=== PATIENT | male | born 1940 | race African-American/Black ===

== ENCOUNTER 2016-10-18 21:41 | Inpatient (IN) | payer MEDICARE, OTHER ==
[~2016-10-18] VITALS: Ht 170.2 cm; Wt 68.6 kg
[~2016-10-18 21:41] MED LIST: ACET-2158 GTB; ATOR80TA75 PO; BIMA2.5D RIGHT EYE; BRIM10DR2 OP; DIGO125T6 PO; ENOX30DI10 SQ; FLOMAX; FOLI-49 PO; METO-429; METOPROLOL ER; PANT40TA4 PO; PENT400T24 PO; TOLT2TAB13 PO; WARF3TAB PO
[2016-10-18 22:26] LABS: ADD SCAN DIFF NO
[2016-10-18 22:28] LABS: BASOPHILS % 0.4 % (0.0-2.0); EOSINOPHILS % 0.4 % (0.0-7.0); HEMATOCRIT 39.2 % (42.0-52.0); HEMOGLOBIN 12.6 g/dl (14.0-18.0); LYMPHOCYTES % 9.7 % (15.0-51.0); MEAN CORPUSCULAR HEMOGLOBIN 28.8 pg (29.0-33.0); MEAN CORPUSCULAR HGB CONC 32.1 g/dl (32.0-37.0); MEAN CORPUSCULAR VOLUME 89.7 fl (82.0-101.0); MEAN PLATELET VOLUME 9.9 fl (7.4-10.4); MONOCYTE # 0.9 10^3/ul (0.3-0.9); MONOCYTES % 8.5 % (0.0-11.0); NEUTROPHIL # 8.6 10^3/ul (1.6-7.5); NEUTROPHILS % 80.7 % (39.0-77.0); PLATELET COUNT 256 10^3/UL (140-415); RED BLOOD COUNT 4.37 10^6/ul (4.70-6.10); RED CELL DISTRIBUTION WIDTH 15.2 % (11.5-14.5); WHITE BLOOD COUNT 10.7 10^3/ul (4.8-10.8)
[2016-10-18 22:43] LABS: INR 2.59; PROTIME 28.1 Sec (12.2-14.2); PT RATIO 2.2
[2016-10-18 22:44] LABS: PARTIAL THROMBOPLASTIN TIME 36.9 Sec (25.0-35.0)
[2016-10-18 22:57] LABS: ADD UMIC YES; UR BILIRUBIN (Dip) NEGATIVE (NEGATIVE); UR BLOOD (Dip) 3+ (NEGATIVE); UR CLARITY CLOUDY (CLEAR); UR COLOR LT. YELLOW (YELLOW); UR GLUCOSE (Dip) NEGATIVE (NEGATIVE); UR KETONES (Dip) NEGATIVE (NEGATIVE); UR LEUKOCYTE ESTERASE (Dip) 2+ (NEGATIVE); UR NITRITE (Dip) NEGATIVE (NEGATIVE); UR TOTAL PROTEIN (Dip) 2+ (NEGATIVE); UR UROBILINOGEN (Dip) 0.2 E.U./dL (0.1-1.0)
[2016-10-18 23:01] LABS: URINE RBCS >200 /HPF (0)
[2016-10-18 23:02] LABS: UR BACTERIA MANY
--- NOTE | 2016-10-18 23:03 | RADRPT ---
PROCEDURE: CHEST 1VW CLINICAL INDICATION: Abdominal pain TECHNIQUE: Single frontal view of the chest was obtained COMPARISON: None. FINDINGS: Sternotomy wires are present along with a prosthetic heart valve. The cardiac size is normal. Aortic vascular calcifications are demonstrated. There is no pulmonary vascular congestion. The lungs are clear. No consolidation, effusion, or pneumothorax. Mild degenerative changes of the visualized osseous structures are visualized. IMPRESSION: 1. No acute cardiopulmonary process. 2. Atherosclerosis status post heart valve repair. RPTAT:PP .Ramón Prado MD, MD Date Time Electronically viewed and signed by .Ramón Prado MD, MD on 10/18/2016 23:03 .V/
--- NOTE | 2016-10-18 23:31 | RADRPT ---
PROCEDURE: CT Abdomen and Pelvis without contrast. CLINICAL INDICATION: Abdominal pain TECHNIQUE: CT scan of the abdomen and pelvis without contrast was performed on a multidetector hig h-resolution CT scanner. The patient was scanned without intravenous contrast. Coronal and sagittal reformatted images were obtained from the axial source images. Images were reviewed on a high-resol [employer] PACS workstation. The total exam CTDI equals 13.02 mGy and the total exam DLP equals 707.87 mG y-cm. One or more the following dose reduction techniques were utilized: Automated exposure control, adjus tment of the mA/ or kV according to patient's size, or use of iterative reconstruction technique. COMPARISON: None. FINDINGS: Sternal wires. Prosthetic mitral valve. Emphysema at lung bases. Linear atelectasis/fibrosis at l hali bases. Small calcified granulomas at the right lung base. Nonspecific approximate 4 mm nodular density at base of left lower lung lobe posteriorly and inferiorly. Calcified granuloma in central liver. Calcified granulomas in spleen. Moderate hiatal hernia. The pancreas as visualized is karena l. Cholelithiasis. There is no evidence for biliary dilatation. The adrenal glands are symmetric a nd normal. Mild to moderate right hydronephrosis. Nonobstructing calculi in right kidney the larges t 7 mm. There is 1.5 cm oval fluid density structure likely a cyst in the mid right kidney. There i s right perinephric and periureteral soft tissue stranding and mild proximal periureteral fluid. Th ere are multiple adjacent small calculi in the distal right ureter the largest approximately 1-2 mm. There are multiple calculi in the right posterior bladder the largest approximately 7 mm which could represent recently passed right ureteral calculi. There is appearance of wall thickening of th e posterior bladder. Mild nonspecific left perinephric soft tissue stranding is seen. There is mild decreased length of the left kidney measuring approximately 8.7 cm. The aorta is of normal caliber. Aortic vascular calcifications are present. Stent in the proximal l eft renal artery. Calcification in splenic, hepatic, right renal and bilateral iliac and femoral ar teries. There is no retroperitoneal lymphadenopathy. Calcified lymph nodes in the periportal region . Calcified lymph node in the upper extrahepatic ligament region. Very small umbilical hernia contai dori fat only. The small bowel loops situated within the pelvis are unremarkable. The prostate does not appear to b e significantly enlarged. Large right inguinal hernia containing fat and nondilated small bowel with no evidence of incarceration. The sigmoid colon and rectum are unremarkable. No adenopathy or ellyn e fluid is seen. There is an unremarkable appendix. Intramedullary elias in right femur with nail in the intertrochanteric right femur. Mild osteoarthrosi s at hips. Mild degenerative changes at sacroiliac joints. Thoracolumbar spondylosis. IMPRESSION: Mild to moderate right hydronephrosis. Nonobstructing calculi in right kidney the largest 7 mm. Th ere is right perinephric and periureteral soft tissue stranding and mild proximal periureteral fluid . There are multiple adjacent small calculi in the distal right ureter the largest approximately 1- 2 mm. There is soft tissue stranding in fat adjacent to the distal ureter. There are multiple calcul i in the right posterior bladder the largest approximately 7 mm which could represent recently passe d right ureteral calculi. Wall thickening of the posterior bladder of uncertain etiology. Large righ t inguinal hernia containing fat and nondilated small bowel with no evidence of incarceration. [place] lithiasis. Atherosclerosis. Nonspecific approximate 4 mm nodular density at base of left lower lung lobe posteriorly and inferiorly. Please see above. RPTAT: HJES .Marcelo Vasquez MD, MD Date Time Electronically viewed and signed by .Marcelo Vasquez MD, on 10/18/2016 23:30 .S/
[2016-10-18 23:52] LABS: ALBUMIN 4.4 g/dl (3.3-4.9); ALBUMIN/GLOBULIN RATIO 1.29; BILIRUBIN,INDIRECT 0.7 mg/dl (0-1.1); BILIRUBIN,TOTAL 0.7 mg/dl (0.2-1.3); CALCIUM 10.2 mg/dl (8.4-10.2); CREATININE 1.42 mg/dl (0.61-1.24); POTASSIUM 4.6 mmol/L (3.5-5.1); TOTAL PROTEIN 7.8 g/dl (6.1-8.1)
[2016-10-19] MEDS ORDERED: CEFTRIAXONE 1 GM/50 ML (PMX) 50 ML IVPB ONE (00:30)
[2016-10-19] MEDS ORDERED: MULT-876 PO (01:50)
[2016-10-19] MEDS ORDERED: UDMYL PO (01:59)
[2016-10-19] MEDS ORDERED: RANI150T9 PO (01:59)
[2016-10-19] MEDS ORDERED: LATA2.5D9 BOTH EYES (01:59)
[2016-10-19] MEDS ORDERED: TRAM50TA2 PO (01:59)
[2016-10-19] MEDS ORDERED: MAGN400T27 PO (01:59)
[2016-10-19] MEDS ORDERED: ASPI-664 PO (01:59)
[2016-10-19] MEDS ORDERED: CILO50TA PO (02:04)
--- NOTE | 2016-10-19 03:02 | ERA ---
ER Documentation Chief Complaint Date/Time DATE: 10/19/16 TIME: 03:01 Chief Complaint right hip/waist/abominal pain-no trauma, starting today HPI This is a 76-year-old male comes in the right hip with abdominal pain started today. Pain is mild to moderate intensity. She denies any trauma. No fevers no chills. No other current complaints. Patient has history of genitourinary issues ROS All systems reviewed and are negative except as per history of present illness. Medications Home Meds Reported Medications Cilostazol* (Cilostazol*) 50 Mg Tablet, 50 MG PO AC BREAKFAST DINNER for PVD, TAB 10/19/16 Latanoprost (Xalatan) 2.5 Ml Drops, 1 DROP BOTH EYES QHS for GLAUCOMA, #1 BOTTLE 10/19/16 Magaldrate/Simethicone* (Mag-Al Plus Suspension*) 30 Ml Oral.susp, 30 ML PO Q6H Y for GASTROINTESTINAL UPSET, ML 10/19/16 Magnesium Oxide* (Mag-Oxide*) 400 Mg Tablet, 400 MG PO TID, TAB 10/19/16 Tramadol HCl (Tramadol HCl) 50 Mg Tablet, 50 MG PO TID for PAIN, #90 TAB 10/19/16 Ranitidine Hcl* (Zantac*) 150 Mg Tablet, 150 MG PO BID, #60 TAB 10/19/16 Aspirin* (Aspirin* EC) 81 Mg Tablet.dr, 81 MG PO DAILY, TAB 10/19/16 Multivit-Min/Iron Fum/Folic AC (Tyjyx-Gyocjfp-Tbzfkubg Tablet) 1 Each Tablet, 1 EACH PO, TAB 10/19/16 Warfarin Sodium* (Coumadin*) 3 Mg Tablet, 3.5 MG PO PM 08/20/13 Atorvastatin* (Atorvastatin*) 80 Mg Tablet, 80 MG PO HS 08/20/13 Pentoxifylline* (Trental*) 400 Mg Tablet.sa, 400 MG PO TID 08/20/13 Tolterodine Tartrate* (Detrol*) 2 Mg Tablet, 4 MG PO DAILY 08/20/13 Folic Acid* (Folic Acid*) 1 Mg Tablet, 1 MG PO DAILY 08/20/13 Metoprolol Tartrate (LOPRESSOR) 50 Mg Tab, 5 Y for ELEVATED HEART RATE, TAB 08/20/13 Digoxin* (Lanoxin*) 125 Mcg Tablet, 125 MCG PO DAILY 08/20/13 Pantoprazole (Protonix) 40 Mg Tabec, 40 MG PO AC MEALS 08/20/13 Discontinued Reported Medications Enoxaparin Sodium* (Lovenox*) 30 Mg/0.3 Ml Disp.syrin, 40 MG SQ DAILY 08/20/13 [Metoprolol Er] No Conflict Check, 100 MG BID 08/20/13 Acetaminophen (TYLENOL 325 MG TAB) 325 Mg Tab, 650 MG GTB Y for PAIN, TAB 08/20/13 [Flomax] No Conflict Check, 0.4 HS 08/20/13 Bimatoprost* (Lumigan*) 2.5 Ml Drops, 1 DROP RIGHT EYE HS 08/20/13 Brimonidine/Timolol* (Combigan*) 10 Ml Drops, 10 ML OP BID 08/20/13 Allergies Allergies: Coded Allergies: No Known Allergy (Unverified , 10/18/16) PMhx/Soc History of Surgery: Yes (MITRAL VALVE REPLACEMENT) Anesthesia Reaction: No Hx Neurological Disorder: No Hx Respiratory Disorders: Yes (COPD) Hx Cardiac Disorders: Yes (PVD,CAROTID DIS. CAD, HTN, RHD,DYSLIPEDEMIA) Hx Psychiatric Problems: No Hx Miscellaneous Medical Probl: Yes (LOWER LIMB ISCHEMIC; bph; R BKA) Hx Alcohol Use: No Hx Substance Use: No Hx Tobacco Use: No Smoking Status: Never smoker Physical Exam Vitals Vital Signs Date Time Temp Pulse Resp B/P Pulse Ox O2 Delivery O2 Flow Rate FiO2 10/19/16 01:30 98 18 154/88 97 Room Air 10/18/16 21:55 97.5 120 18 153/77 94 Physical Exam Const: [] Head: Atraumatic Eyes: Normal Conjunctiva ENT: Normal External Ears, Nose and Mouth. Neck: Full range of motion..~ No meningismus. Resp: Clear to auscultation bilaterally Cardio: Regular rate and rhythm, no murmurs Abd: Soft, non tender, non distended. Normal bowel sounds Skin: No petechiae or rashes Back: No midline or flank tenderness Ext: No cyanosis, or edema Neur: Awake and alert Psych: Normal Mood and Affect Result Diagram: 10/18/16 2215 10/18/162214 Results 24 hrs Laboratory Tests Test 10/18/16 22:15 10/18/16 22:40 White Blood Count 10.710^3/ul Red Blood Count 4.3710^6/ul Hemoglobin 12.6g/dl Hematocrit 39.2% Mean Corpuscular Volume 89.7fl Mean Corpuscular Hemoglobin 28.8pg Mean Corpuscular Hemoglobin Concent 32.1g/dl Red Cell Distribution Width 15.2% Platelet Count 34365^3/UL Mean Platelet Volume 9.9fl Neutrophils % 80.7% Lymphocytes % 9.7% Monocytes % 8.5% Eosinophils % 0.4% Basophils % 0.4% Nucleated Red Blood Cells % 0.0/100WBC Neutrophils # 8.610^3/ul Lymphocytes # 1.010^3/ul Monocytes # 0.910^3/ul Eosinophils # 0.010^3/ul Basophils # 0.010^3/ul Nucleated Red Blood Cells # 0.010^3/ul Prothrombin Time 28.1Sec Prothrombin Time Ratio 2.2 INR International Normalized Ratio 2.59 Activated Partial Thromboplast Time 36.9Sec Sodium Level 147mmol/L Potassium Level 4.6mmol/L Chloride Level 108mmol/L Carbon Dioxide Level 28mmol/L Anion Gap 16 Blood Urea Nitrogen 21mg/dl Creatinine 1.42mg/dl Glucose Level 113mg/dl Calcium Level 10.2mg/dl Total Bilirubin 0.7mg/dl Direct Bilirubin 0.00mg/dl Indirect Bilirubin 0.7mg/dl Aspartate Amino Transf (AST/SGOT) 34IU/L Alanine Aminotransferase (ALT/SGPT) 34IU/L Alkaline Phosphatase 115IU/L Total Protein 7.8g/dl Albumin 4.4g/dl Globulin 3.40g/dl Albumin/Globulin Ratio 1.29 Lipase 59U/L Urine Color LT. YELLOW Urine Clarity CLOUDY Urine pH 8.5 Urine Specific [place] 1.020 Urine Ketones NEGATIVE Urine Nitrite NEGATIVE Urine Bilirubin NEGATIVE Urine Urobilinogen 0.2 E.U./dL Urine Leukocyte Esterase 2+ Urine Microscopic RBC >200/HPF Urine Microscopic WBC >50/HPF Urine Epithelial Cells FEW Urine Bacteria MANY Urine Hemoglobin 3+ Urine Glucose NEGATIVE% Urine Total Protein 2+ Current Medications Medications (Trade) Dose Ordered Sig/Anna Route PRN Reason Start Time Stop Time Status Last Admin Dose Admin Ceftriaxone Sodium (Rocephin) 50 ml @ 100 mls/hr ONCE ONCE IVPB 10/19/16 00:30 10/19/16 00:59 DC 10/19/16 00:34 Procedures/MDM EKG: Rate/Rhythm: Normal Sinus Rhythm QRS, ST, T-waves: No changes consistent w/ acute ischemia Impression: No evidence of ischemia or arrhythmia Chest X-ray 1V Interpreted by me: Soft Tissue: No acute abnormalities Bones: No acute abnormalities Mediastinum/Cardiac Silhouette/Lungs: No acute abnormalities Medical decision-makin-year-old male has evidence of pyelonephritis but also has renal stones. Given this complicated case, patient was started on broad-spectrum antibiotics and will be admitted Dr. Rafi Noble. Physician consult was placed with Dr. Alicia, who follows this patient already. Departure Diagnosis: Primary Impression: Pyelonephritis Additional Impression: Renal colic Condition: Serious CIARRA DE LA FUENTE Oct 19, 2016 03:02
[2016-10-19 03:45] VITALS: BP 124/70; RESP 18
[2016-10-19 03:55] VITALS: Ht 170.2 cm; Wt 68.6 kg
[2016-10-19] MEDS ORDERED: morphine 2 MG INJ IV PRN (05:00)
[2016-10-19] MEDS ORDERED: AL HYDROX/MG HYDROX/SIMETH 30 ML CUP PO PRN (05:00)
[2016-10-19] MEDS ORDERED: ONDANSETRON 4 MG INJ IV PRN (05:00)
[2016-10-19 05:53] LABS: ADD SCAN DIFF NO
[2016-10-19 05:56] LABS: BASOPHILS % 0.3 % (0.0-2.0); EOSINOPHILS # 0.1 10^3/ul (0.0-0.5); EOSINOPHILS % 0.8 % (0.0-7.0); HEMATOCRIT 39.2 % (42.0-52.0); HEMOGLOBIN 12.8 g/dl (14.0-18.0); LYMPHOCYTES # 1.4 10^3/ul (0.8-2.9); LYMPHOCYTES % 13.8 % (15.0-51.0); MEAN CORPUSCULAR HEMOGLOBIN 29.3 pg (29.0-33.0); MEAN CORPUSCULAR HGB CONC 32.7 g/dl (32.0-37.0); MEAN CORPUSCULAR VOLUME 89.7 fl (82.0-101.0); MONOCYTE # 0.8 10^3/ul (0.3-0.9); MONOCYTES % 8.4 % (0.0-11.0); NEUTROPHIL # 7.5 10^3/ul (1.6-7.5); NEUTROPHILS % 76.4 % (39.0-77.0); PLATELET COUNT 265 10^3/UL (140-415); RED BLOOD COUNT 4.37 10^6/ul (4.70-6.10); RED CELL DISTRIBUTION WIDTH 15.2 % (11.5-14.5); WHITE BLOOD COUNT 9.9 10^3/ul (4.8-10.8)
[2016-10-19] MEDS ORDERED: CILOSTAZOL 100 MG TAB PO SCH ×3 (06:00→08:00)
[2016-10-19 06:13] LABS: INR 2.79; PROTIME 29.8 Sec (12.2-14.2); PT RATIO 2.3
[2016-10-19] MEDS: DEXTROSE 5%-0.45% NACL 1,000 ML IV SCH ×3 (06:26→20:55)
[2016-10-19] MEDS: PIPER-TAZO 3.375 GM IV (PMX) 100 ML IVPB SCH ×3 (06:26→21:53)
[2016-10-19 06:43] LABS: ALBUMIN 4.3 g/dl (3.3-4.9); ALBUMIN/GLOBULIN RATIO 1.43; BILIRUBIN,INDIRECT 0.6 mg/dl (0-1.1); BILIRUBIN,TOTAL 0.6 mg/dl (0.2-1.3); CALCIUM 9.9 mg/dl (8.4-10.2); CREATININE 1.26 mg/dl (0.61-1.24); POTASSIUM 4.3 mmol/L (3.5-5.1); TOTAL PROTEIN 7.3 g/dl (6.1-8.1)
[2016-10-19] MEDS: PANTOPRAZOLE (EC) 40 MG TAB PO SCH (08:00)
[2016-10-19] MEDS: CILOSTAZOL 100 MG TAB PO SCH ×2 (08:00→17:58)
[2016-10-19] MEDS ORDERED: PANTOPRAZOLE (EC) 40 MG TAB PO SCH (08:00)
[2016-10-19 08:36] VITALS: BP 123/69; RESP 16
[2016-10-19] MEDS: TOLTERODINE 2 MG TAB PO SCH (09:42)
[2016-10-19] MEDS: ASPIRIN (EC) 81 MG TAB PO SCH (09:43)
[2016-10-19] MEDS: RANITIDINE 150 MG TAB PO SCH ×2 (09:43→20:54)
[2016-10-19] MEDS: MULTIVITAMINS/MINERALS TAB PO SCH (09:43)
[2016-10-19] MEDS: FOLIC ACID 1 MG TAB PO SCH (09:43)
[2016-10-19] MEDS: MAGNESIUM OXIDE 400 MG TAB PO SCH ×3 (09:43→20:54)
[2016-10-19] MEDS: PENTOXIFYLLINE (SR) 400 MG TAB PO SCH ×3 (09:44→20:54)
[2016-10-19] MEDS: traMADol 50 MG TAB PO SCH ×3 (09:44→20:54)
[2016-10-19] MEDS: METOPROLOL 50 MG TAB PO SCH (09:49)
[2016-10-19] MEDS: DIGOXIN 0.125 MG TAB PO SCH (13:30)
--- NOTE | 2016-10-19 14:09 | CONS ---
DATE OF ADMISSION: 10/19/2016 DATE OF CONSULTATION: 10/19/2016 REQUESTING PHYSICIAN: Dr. Kashmir Noble Dear Kashmir, Thank you for asking me to see this patient in urological consultation. HISTORY OF PRESENT ILLNESS: This is a 76-year-old male who I know from the past 10 years, and I see him in the office once every 6 months. The patient sees me because of prostate ca ncer that is being managed with surveillance. The patient [facility] in the [facility] he was brought to [facility] because of right lower abdominal pain. He did have nausea but no vomiting. The patient underwent a CT scan of the abdomen and pelvis, and that showed multiple right renal stones in addition to stones in the distal right ureter and having right hydro nephrosis because of probably the stones in the ureter. The patient, at present, stated that he is feeling uncomfortable. PAST MEDICAL HISTORY: Significant for history of heart surgery for mitral valve replacement, histor y of COPD, history of peripheral vascular disease, coronary artery disease, hypertension, and dyslip idemia. The patient has had right below knee amputation. The patient's left leg right now also has poor circulation. SOCIAL HISTORY: The patient does not smoke, does not drink, and [facility] [place]. ALLERGIES: HE HAS NO KNOWN DRUG ALLERGIES. PRESENT MEDICATIONS: Include 1. Eyedrops for glaucoma. 2. Flomax. 3. Tylenol p.r.n. 4. Metoprolol 100 mg twice a day. 5. Lovenox. 6. Protonix. 7. Lanoxin. 8. Lopressor. 9. Folic acid. 10. Detrol 2 mg. Initially the patient does complain of urinary frequency. 11. Pentoxifylline 400 mg 3 times a day. 12. Atorvastatin 80 mg daily. 13. Coumadin 3 mg. 14. Folic acid. 15. Aspirin 81 mg. 16. Zantac 150 mg. 17. Tramadol for the pain. 18. Magnesium oxide. 19. Magaldrate simethicone suspension. 20. Xalatan eyedrops. 21. ____ 50 mg tabs. PHYSICAL EXAMINATION: GENERAL: Reveals an elderly male. He weighs about 68.6 kilograms. He is 67 inches tall. VITAL SIGNS: Temperature is 98.0, pulse is 95, respirations 16, blood pressure 123/69. ABDOMEN: Soft at the present. He denies having any tenderness. EXTERNAL GENITALIA: He does have a right inguinal hernia. Both testes are atrophic. RECTAL: Reveals a hard prostate but is not large. LABORATORY DATA: CBC shows a white count of 9.9, hemoglobin 12.8, hematocrit 39.2, platelet count 2 65,000. BUN is 20, creatinine 1.26. Sodium 146, potassium 4.3, chloride 110, CO2 28. PT is 29.8, INR 2.79. Urinalysis shows 3+ occult blood, more than 200 RBCs, more than 50 WBCs. IMPRESSION: The patient does have right renal stones and mild to moderate right hydronephrosis with kidney stones, the largest being 7 mm in size. There is also right perinephric and periureteral so ft tissue stranding. There are multiple small stones in the distal right ureter, the largest being 1 to 2 mm. There is some stranding next to the distal right ureter. There are multiple calculi in the right posterior bladder, the largest 7 mm, which could represent a recently passed right uretera l calculi, or it could be a stone at the ureterovesical junction. There is wall thickening of the p osterior bladder of uncertain etiology. He does have a right inguinal hernia containing fat and non dilated small bowel with no evidence of incarceration. He does have cholelithiasis, atherosclerosis , and nonspecific approximate 4 mm nodular density at the base of the left lower lung lobe posterior ly and inferiorly. PLAN: Strain his urine, give him pain medications. We will get a KUB to see if one could see the s tone on the KUB, and we also shall send urine for culture to make sure that there is no urinary trac t infection. I will follow his urological problem with you. I do thank you for allowing me to help in his care. Dictated By: GAETANO ROMAN/ROMEL Conf#: [id number] DID#: [id number]
--- NOTE | 2016-10-19 16:15 | QN ---
Documentation Comment [id number] ALEKSEY GARCIA MD Oct 19, 2016 16:15
[2016-10-19] MEDS ORDERED: WARFARIN 1 MG TAB PO SCH (17:00)
[2016-10-19] MEDS ORDERED: WARFARIN 3 MG TAB PO SCH (17:00)
--- NOTE | 2016-10-19 17:52 | HP ---
DATE OF ADMISSION: 10/19/2016 HISTORY OF PRESENT ILLNESS: The patient is a 76-year-old male who is a resident of [facility] and was transferred here because of the severe flank pain. The patient has a history of PVD, CAD, AFib history, history of mitral valve replacement, history of right BKA, history of gastritis, peptic ulcer disease per patient, history of anemia, history of hypertension, history of hyperlipidemia, history of rheumatic heart disease, history of prostate cancer being monitored by Dr. Martins, presented with flank pain and noted to have blood pressure 123/69. The patient had a chest x-ray done, shows the patient has no acute cardiopulmonary process, atherosclerosis, status post heart valve repair. The patient had a CT of the abdomen done shows patient has a mild to moderate right hydronephrosis, nonobstructing calculi in the right kidney, the largest 7 mm. There is right perinephric and periureteral soft tissue stranding and mild proximal periureteral fluid. There are multiple adjacent small calculi in the distal right ureter, the largest approximately 1 to 2 mm. There is soft tissue stranding in that adjacent to the distal ureter. There are multiple calculi in the right posterior bladder, the largest approximately 7 mm which could represent right ureteral calculi. Wall thickening of the posterior bladder of uncertain etiology. Large right inguinal hernia containing fat, and nondilated small bowel with no evidence of incarceration, cholelithiasis, atherosclerosis. Nonspecific approximately 4 mm nodular density at the base of the left lower lobe posteriorly and inferiorly. The patient's sodium 147 earlier, now is 146, and is being admitted for further management. PAST MEDICAL HISTORY: As mentioned above. 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 Cedeno as an outpatient. The patient has ejection fraction 60% to 65% in the past and moderate 2+ aortic insufficiency, moderate 2 to 3+ tricuspid regurgitation. The patient has a history of moderate aortic stenosis, prosthetic mitral valve functioning well, left ventricular hypertrophy with normal ejection fraction. ALLERGY HISTORY: NEGATIVE. SOCIAL HISTORY: Negative. FAMILY HISTORY: Positive for rheumatic heart disease per patient. MEDICATION HISTORY: Listed as patient is on: 1. Aspirin. 2. Lipitor. 3. Pletal. 4. Digoxin. 5. Folic acid. 6. Xalatan. 7. Megace. 8. Magnesium oxide. 9. Metoprolol. 10. Multivitamin. 11. Protonix. 12. Trental. 13. Ranitidine. 14. Detrol. 15. Tramadol. 16. Warfarin. REVIEW OF SYSTEMS: As mentioned. RESPIRATORY: Unremarkable. CARDIOVASCULAR: Unremarkable. ABDOMEN: No abdominal pain and no dysuria, hematuria. Flank tenderness. EXTREMITIES: Unremarkable. CENTRAL NERVOUS SYSTEM: Unremarkable. PHYSICAL EXAMINATION: GENERAL: The patient is awake, alert. VITAL SIGNS: Pulse 95, blood pressure 124/70. HEENT: Head is atraumatic, normocephalic. Pupils equal, reactive to light. NECK: Supple. No JVD. LUNGS: Clear. CARDIOVASCULAR: S1, S2 are normal. Systolic murmur noted. ABDOMEN: Soft, nontender. Bowel sounds present. No palpable mass. EXTREMITIES: The patient has no acute cyanosis, clubbing, or edema. The patient has a right BKA. LABORATORY DATA: As mentioned above. IMPRESSION: 1. The patient has acute renal colic, ureteral stone, kidney stone and bladder stone. 2. The patient has systemic inflammatory response syndrome. 3. Dehydration. 4. Hypernatremia. 5. History of chronic atrial fibrillation. 6. History of rheumatic heart disease. 7. History of mitral valve replacement, mechanical, per patient. 8. History of dyslipidemia. 9. History of hypertension. 10. History of peripheral vascular disease. 11. History of prostate cancer being monitored by Dr. Martins. PLAN: To continue current treatment. The patient is currently on antibiotics. Continue home medications, Coumadin. Urology consultation. Orders were done. Dictated By: ALEKSEY GARCIA MD BS/ROMEL Conf#: [id number] DID#: [id number] MTDD
[2016-10-19 19:56] VITALS: BP 146/73; RESP 20
[2016-10-19] MEDS: ATORVASTATIN 80 MG TAB PO SCH (20:54)
[2016-10-19] MEDS: LATANOPROST 0.005% 2.5 ML OPH BOTH EYES SCH (20:59)
--- NOTE | 2016-10-19 21:53 | RADRPT ---
PROCEDURE: XR Abdomen. CLINICAL INDICATION: Distal rt ureteral stones,rt renal stones TECHNIQUE: AP abdomen x-ray. COMPARISON: CT of the abdomen pelvis 10/18/2016 FINDINGS: The bowel gas pattern is normal. There is no evidence of obstruction. Redemonstration of multiple ca lcifications overlying the right renal shadow compatible with known nonobstructing nephrolithiasis. The distal right ureteral bladder calcifications noted on CT and demonstrated no significant interv al change in position. Right hip nail in place. IMPRESSION: 1. Multiple calcifications overlying the right kidney compatible with known nonobstructing nephroli thiasis. 2. Stable position of multiple distal ureteral and bladder calcifications compared to the CT of 04/2017. RPTAT:AAJJ Physician Akira Date Time Electronically viewed and signed by Physician Akira on 10/19/2016 21:52 ANDRIA/
[2016-10-20] MEDS: PIPER-TAZO 3.375 GM IV (PMX) 100 ML IVPB SCH ×3 (05:37→21:13)
[2016-10-20 06:12] LABS: INR 3.38; PROTIME 34.7 Sec (12.2-14.2); PT RATIO 2.7
[2016-10-20 07:58] VITALS: BP 139/67; RESP 21
[2016-10-20] MEDS: MULTIVITAMINS/MINERALS TAB PO SCH (08:49)
[2016-10-20] MEDS: MAGNESIUM OXIDE 400 MG TAB PO SCH ×3 (08:49→21:13)
[2016-10-20] MEDS: RANITIDINE 150 MG TAB PO SCH ×2 (08:49→21:12)
[2016-10-20] MEDS: CILOSTAZOL 100 MG TAB PO SCH ×2 (08:49→17:20)
[2016-10-20] MEDS: PANTOPRAZOLE (EC) 40 MG TAB PO SCH (08:49)
[2016-10-20] MEDS: ASPIRIN (EC) 81 MG TAB PO SCH (08:49)
[2016-10-20] MEDS: traMADol 50 MG TAB PO SCH ×3 (08:50→21:13)
[2016-10-20] MEDS: METOPROLOL 50 MG TAB PO SCH (08:50)
[2016-10-20] MEDS: FOLIC ACID 1 MG TAB PO SCH (08:50)
[2016-10-20] MEDS: PENTOXIFYLLINE (SR) 400 MG TAB PO SCH ×3 (08:50→21:13)
[2016-10-20] MEDS: TOLTERODINE 2 MG TAB PO SCH (08:50)
--- NOTE | 2016-10-20 12:17 | PN ---
DATE: 10/20/2016 SUBJECTIVE: No abdominal pain mostly on the right lower abdomen. The patient was found to have a d istal right ureteral stones and also right renal stones with some hydronephrosis. HISTORY OF PRESENT ILLNESS: The patient is known also to have a history of prostate cancer with óscar t being monitored and followed without any treatment. The patient himself today feels that he has m ild pain, but it is not that severe as when he came into the hospital. OBJECTIVE: VITAL SIGNS: Temperature is 98.5, blood pressure 139/67, pulse is 115, respirations 21. ABDOMEN: Soft. There is no tenderness at the present, and the external genitalia are normal. LABORATORY DATA: His last CBC from yesterday shows a white count 9.9, hemoglobin 12.8. BUN is 20, creatinine 1.26, sodium 146, potassium 4.3, chloride 110, CO2 28. Urine culture initially that showed gram-positive cocci; however, [facility], no growth after 24 hours. IMAGING: I ordered on him a KUB yesterday and that was reported by the radiologist as multiple calc ifications overlying the right kidney, compatible with nonobstructing stone in the kidney, also stab le position of multiple distal ureteral and bladder calcification compared to the CT scan of 017. IMPRESSION: Distal right ureteral stones. These stones may be at the ureterovesical junction. The y may not be all the way inside the bladder. Recommendation is to continue giving him pain medicati on as needed, strain the urine and we will repeat the KUB and see if the stones do change position. Also, the patient has been on pain medications and also warfarin. His PT is 34.7, the INR 3.38 and that will be checked by the medical team. I will also put him on Flomax just to help relax the dis janie right ureter, to help him pass these stones. Dictated By: GAEATNO ROMAN/ROMEL Conf#: [id number] DID#: [id number]
[2016-10-20] MEDS: DIGOXIN 0.125 MG TAB PO SCH (13:10)
[2016-10-20] MEDS: DEXTROSE 5%-0.45% NACL 1,000 ML IV SCH (15:54)
[2016-10-20] MEDS ORDERED: WARFARIN 3 MG TAB PO SCH (17:00)
[2016-10-20 21:06] VITALS: BP 179/86; RESP 19
[2016-10-20] MEDS: TAMSULOSIN (SR) 0.4 MG CAP PO SCH (21:13)
[2016-10-20] MEDS: ATORVASTATIN 80 MG TAB PO SCH (21:13)
[2016-10-20] MEDS: LATANOPROST 0.005% 2.5 ML OPH BOTH EYES SCH (21:13)
[2016-10-20 21:45] VITALS: BP 142/82
[2016-10-21] MEDS: PIPER-TAZO 3.375 GM IV (PMX) 100 ML IVPB SCH ×3 (05:38→22:59)
[2016-10-21] MEDS: DEXTROSE 5%-0.45% NACL 1,000 ML IV SCH ×2 (05:38→22:59)
[2016-10-21 06:12] LABS: INR 4.22; PROTIME 41.4 Sec (12.2-14.2); PT RATIO 3.2
[2016-10-21] MEDS: PANTOPRAZOLE (EC) 40 MG TAB PO SCH (08:30)
[2016-10-21] MEDS: TOLTERODINE 2 MG TAB PO SCH (08:30)
[2016-10-21] MEDS: PENTOXIFYLLINE (SR) 400 MG TAB PO SCH ×3 (08:30→20:25)
[2016-10-21] MEDS: FOLIC ACID 1 MG TAB PO SCH (08:30)
[2016-10-21] MEDS: CILOSTAZOL 100 MG TAB PO SCH ×2 (08:30→17:27)
[2016-10-21] MEDS: MULTIVITAMINS/MINERALS TAB PO SCH (08:33)
[2016-10-21] MEDS: MAGNESIUM OXIDE 400 MG TAB PO SCH ×3 (08:33→20:24)
[2016-10-21] MEDS: RANITIDINE 150 MG TAB PO SCH ×2 (08:33→20:25)
[2016-10-21] MEDS: ASPIRIN (EC) 81 MG TAB PO SCH (08:34)
[2016-10-21 08:36] VITALS: BP 174/78; RESP 18
[2016-10-21] MEDS: METOPROLOL 50 MG TAB PO SCH (08:39)
[2016-10-21] MEDS: traMADol 50 MG TAB PO SCH ×3 (08:40→20:25)
[2016-10-21] MEDS: DIGOXIN 0.125 MG TAB PO SCH (13:04)
--- NOTE | 2016-10-21 18:45 | PN ---
Date/Time of Note Date/Time of Note DATE: 10/21/16 TIME: 18:44 Assessment/Plan VTE Prophylaxis VTE Prophylaxis Intervention: other Lines/Catheters IV Catheter Type (from Nrsg): Peripheral IV Assessment/Plan Chief Complaint/Hosp Course IMPRESSION: 1. The patient has acute renal colic, ureteral stone, kidney stone and bladder stone. 2. The patient has systemic inflammatory response syndrome. 3. Dehydration. 4. Hypernatremia. 5. History of chronic atrial fibrillation. 6. History of rheumatic heart disease. 7. History of mitral valve replacement, mechanical, per patient. 8. History of dyslipidemia. 9. History of hypertension. 10. History of peripheral vascular disease. 11. History of prostate cancer being monitored by Dr. Martins. PLAN HOLD COUMADIN Problems: Subjective 24 Hr Interval Summary Cardiovascular: no complaints Gastrointestinal: no complaints Exam/Review of Systems Vital Signs Vitals Vital Signs Date Time Temp Pulse Resp B/P Pulse Ox O2 Delivery O2 Flow Rate FiO2 10/21/16 08:36 98.5 101 18 174/78 100 10/19/16 02:50 Room Air Intake and Output 10/20/16 10/20/16 10/21/16 15:00 23:00 07:00 Intake Total 1808 ml 1020 ml Output Total 550 ml 400 ml Balance 1258 ml 620 ml Exam Respiratory: clear to auscultation Cardiovascular: regular rate and rhythm Gastrointestinal: soft Musculoskeletal: nl extremities to inspection Extremities: normal pulses Results Result Diagram: 10/19/16 0525 10/19/16 0525 Results 24 hrs Laboratory Tests Test 10/21/16 05:00 Prothrombin Time 41.4 H Prothrombin Time Ratio 3.2 INR International Normalized Ratio 4.22 Medications Medications Current Medications Ondansetron HCl (Zofran Inj) 4 mg Q6H PRN IV NAUSEA AND/OR VOMITING; Start at 05:00 Acetaminophen (Tylenol Tab) 650 mg Q6H PRN PO PAIN AND OR ELEVATED TEMP; Start 10/19/16 at 05:00 Morphine Sulfate (morphine) 2 mg Q4H PRN IV PAIN; Start 10/19/16 at 05:00 Aspirin (Halfprin) 81 mg DAILY PO Last administered on 10/21/16t 08:34; Admin Dose 81 MG; Start 10/19/16 at 09:00 Atorvastatin Calcium (Lipitor) 80 mg HS PO Last administered on 10/20/16 21:13 ; Admin Dose 80 MG; Start 10/19/16 at 21:00 Digoxin (Digoxin) 0.125 mg DAILY@13 PO Last administered on 10/21/16 13:04; Admin Dose 0.125 MG; Start 10/19/16 at 13:00 Folic Acid (Folic Acid) 1 mg DAILY PO Last administered on 10/21/16 08:30; Admin Dose 1 MG; Start 10/19/16 at 09:00 Latanoprost (Xalatan) 1 drop QHS BOTH EYES Last administered on 10/20/16 21:13 ; Admin Dose 1 DROP; Start 10/19/16 at 21:00 Al Hydrox/Mg Hydrox/Simethicone (Mag-Al Plus) 30 ml Q6H PRN PO GASTROINTESTINAL UPSET; Start 10/19/16 at 05:00 Magnesium Oxide (Mag-Ox 400) 400 mg TID PO Last administered on 10/21/16 13:03 ; Admin Dose 400 MG; Start 10/19/16 at 09:00 Pentoxifylline (Trental) 400 mg TID PO Last administered on 10/21/16 13:03; Admin Dose 400 MG; Start 10/19/16 at 09:00 Ranitidine HCl (Zantac) 150 mg BID PO Last administered on 10/21/16 08:33; Admin Dose 150 MG; Start 10/19/16 at 09:00 Tolterodine Tartrate (Detrol) 4 mg DAILY PO Last administered on 10/21/16 08: 30; Admin Dose 4 MG; Start 10/19/16 at 09:00 Tramadol HCl (Ultram) 50 mg TID PO Last administered on 10/21/16 13:03; Admin Dose 50 MG; Start 10/19/16 at 09:00 Metoprolol Tartrate (Lopressor) 50 mg DAILY PO Last administered on 10/21/16 08:39; Admin Dose 50 MG; Start 10/19/16 at 09:00 Multivitamins/ Minerals 1 tab 1 tab DAILY PO Last administered on 10/21/16 08: 33; Admin Dose 1 TAB; Start 10/19/16 at 09:00 Piperacillin Sod/ Tazobactam Sod 100 ml @ 200 mls/hr Q8 IVPB Last administered on 10/21/16 15:43; Admin Dose 200 MLS/HR; Start 10/19/16 at 06:00 Dextrose/Sodium Chloride (D5-1/2ns) 1,000 ml @ 70 mls/hr [id number] IV Last administered on 10/21/16 05:38; Admin Dose 70 MLS/HR; Start 10/19/16 at 05:00 Tamsulosin HCl (Flomax) 0.4 mg HS PO Last administered on 10/20/16 21:13; Admin Dose 0.4 MG; Start 10/20/16 at 21:00 Warfarin Sodium (Coumadin) 3 mg DAILY@17 PO Last administered on 10/20/16 17: 20; Admin Dose 3 MG; Start 10/20/16 at 17:00; Status Future hold ALEKSEY GARCIA MD Oct 21, 2016 18:45
[2016-10-21 20:06] VITALS: BP 153/89; RESP 20
[2016-10-21] MEDS: ATORVASTATIN 80 MG TAB PO SCH (20:24)
[2016-10-21] MEDS: TAMSULOSIN (SR) 0.4 MG CAP PO SCH (20:24)
[2016-10-21] MEDS: LATANOPROST 0.005% 2.5 ML OPH BOTH EYES SCH (20:28)
--- NOTE | 2016-10-21 21:28 | PN ---
DATE: 10/21/2016 SUBJECTIVE: The patient has distal right ureteral stones and he denies having any pain now. He is comfortable and the patient has not required any pain medications today. OBJECTIVE: VITAL SIGNS: His temperature is 98.5, pulse is 101, the respiration 18, blood pressure 174/78. ABDOMEN: Soft. There is no tenderness at the present. LABORATORY DATA: The patient's PT is 41.4, INR 4.22. I have discussed with Dr. Kashmir Garcia about his elevated INR and the fact that if we were to go in and remove his ureteral stone, then we need h im to be off the Coumadin and then put him on heparin to make sure that we could operate on him with out having bleeding. However, for now, we are just going to monitor him and hopefully he may be abl e to pass these stones so we do not have to intervene. IMPRESSION: 1. Distal right ureteral stones and right renal stones. 2. The patient also does have a history of prostate cancer and he is being observed for that. PLAN: To do a KUB in the morning and see if one could still see the stones, as they were seen on pr ior KUB. If he does not pass the stones, and so far he has not, as per nurses' notes the urine bein g strained for stones all their own. If he does not pass the stones we may just repeat the CT and s ee if the stones are still there, and if they should still be there, then on Tuesday we may go ahead and do ureteroscopy and laser lithotripsy. By then, the effect of the Coumadin will have subsided a nd then the risk of bleeding would be much less. Dictated By: GAETANO VALDIVIA MD BB/ROMEL Conf#: [id number] DID#: [id number] CC: KASHMIR GARCIA MD;*End*
[2016-10-21 21:43] VITALS: BP 150/80; PULSE 108
[2016-10-21 23:52] VITALS: BP 145/76; PULSE 98
[2016-10-22 05:47] LABS: ADD SCAN DIFF NO
[2016-10-22] MEDS: PIPER-TAZO 3.375 GM IV (PMX) 100 ML IVPB SCH ×3 (05:48→21:07)
[2016-10-22] MEDS: ACETAMINOPHEN 325 MG TAB PO PRN (05:51)
[2016-10-22 06:17] LABS: BASOPHILS % 0.3 % (0.0-2.0); EOSINOPHILS # 0.3 10^3/ul (0.0-0.5); EOSINOPHILS % 3.8 % (0.0-7.0); HEMATOCRIT 37.2 % (42.0-52.0); HEMOGLOBIN 12.2 g/dl (14.0-18.0); LYMPHOCYTES # 2.2 10^3/ul (0.8-2.9); LYMPHOCYTES % 31.8 % (15.0-51.0); MEAN CORPUSCULAR HEMOGLOBIN 28.8 pg (29.0-33.0); MEAN CORPUSCULAR HGB CONC 32.8 g/dl (32.0-37.0); MEAN CORPUSCULAR VOLUME 87.9 fl (82.0-101.0); MEAN PLATELET VOLUME 10.3 fl (7.4-10.4); MONOCYTE # 0.8 10^3/ul (0.3-0.9); MONOCYTES % 11.3 % (0.0-11.0); NEUTROPHIL # 3.6 10^3/ul (1.6-7.5); NEUTROPHILS % 52.7 % (39.0-77.0); PLATELET COUNT 257 10^3/UL (140-415); RED BLOOD COUNT 4.23 10^6/ul (4.70-6.10); RED CELL DISTRIBUTION WIDTH 14.9 % (11.5-14.5); WHITE BLOOD COUNT 6.8 10^3/ul (4.8-10.8)
[2016-10-22 06:39] LABS: INR 4.49; PROTIME 43.5 Sec (12.2-14.2); PT RATIO 3.4
[2016-10-22] MEDS: PANTOPRAZOLE (EC) 40 MG TAB PO SCH (07:50)
[2016-10-22] MEDS: CILOSTAZOL 100 MG TAB PO SCH (07:50)
[2016-10-22 08:41] VITALS: BP 146/76; RESP 16
[2016-10-22] MEDS: PENTOXIFYLLINE (SR) 400 MG TAB PO SCH ×3 (09:26→21:04)
[2016-10-22] MEDS: traMADol 50 MG TAB PO SCH ×3 (09:26→21:05)
[2016-10-22] MEDS: TOLTERODINE 2 MG TAB PO SCH (09:26)
[2016-10-22] MEDS: MAGNESIUM OXIDE 400 MG TAB PO SCH ×3 (09:28→21:03)
[2016-10-22] MEDS: RANITIDINE 150 MG TAB PO SCH ×2 (09:28→21:03)
[2016-10-22] MEDS: MULTIVITAMINS/MINERALS TAB PO SCH (09:28)
[2016-10-22] MEDS: METOPROLOL 50 MG TAB PO SCH (09:28)
[2016-10-22] MEDS: FOLIC ACID 1 MG TAB PO SCH (09:29)
[2016-10-22] MEDS: ASPIRIN (EC) 81 MG TAB PO SCH (09:29)
--- NOTE | 2016-10-22 10:33 | RADRPT ---
PROCEDURE: XR Abdomen. CLINICAL INDICATION: Abdomen pain. History of distal right ureteral calculi. TECHNIQUE: AP supine abdomen x-ray. COMPARISON: 10/19/2016. FINDINGS: The bowel gas pattern is normal. There is no evidence of obstruction. Multiple right renal calculi and distal right ureteral calculi are faintly visualized. Calcificatio ns in the right upper quadrant of the abdomen are in the gallbladder or gallbladder neck as seen on prior CT scan. Vascular calcifications are present consistent with atherosclerosis. There is a left renal artery s tent. There is a elias and screw in the right femur. IMPRESSION: 1. Right renal calculi and distal right ureteral calculi faintly visualized. 2. Gallstones. 3. Atherosclerosis. 4. Left renal artery stent. 5. A elias and screw in the right femur. RPTAT: QQ .Luis Eduardo Lepe MD, MD Date Time Electronically viewed and signed by .Luis Eduardo Lepe MD, on 10/22/2016 10:33 .R/
--- NOTE | 2016-10-22 12:12 | PN ---
Date/Time of Note Date/Time of Note DATE: 10/22/16 TIME: 12:10 Assessment/Plan VTE Prophylaxis VTE Prophylaxis Intervention: SCD's (left foot) Lines/Catheters IV [facility] ([facility]): Peripheral IV Assessment/Plan Chief Complaint/Hosp Course 1. The patient has acute renal colic, ureteral stone, kidney stone and bladder stone. 2. The patient has systemic inflammatory response syndrome. 3. Dehydration. 4. Hypernatremia. 5. History of chronic atrial fibrillation. 6. History of rheumatic heart disease. 7. History of mitral valve replacement, mechanical, per patient. 8. History of dyslipidemia. 9. History of hypertension. 10. History of peripheral vascular disease. 11. History of prostate cancer being monitored by Dr. Martins. 12. Atherosclerosis Problems: Assessment/Plan 1.Continue strain urine 2. ON KUB stone is still visible, possible lithotripsy by dr Martins Subjective 24 Hr Interval Summary Constitutional: improved, no complaints Respiratory: no complaints Musculoskeletal: back pain Exam/Review of Systems Vital Signs Vitals Vital Signs Date Time Temp Pulse Resp B/P Pulse Ox O2 Delivery O2 Flow Rate FiO2 10/22/16 08:41 98.0 130 16 146/76 93 10/19/16 02:50 Room Air Intake and Output 10/21/16 10/21/16 10/22/16 15:00 23:00 07:00 Intake Total 200 ml 3020 ml 1300 ml Output Total 700 ml 1550 ml 600 ml Balance -500 ml 1470 ml 700 ml Exam Constitutional: alert, oriented Neck: supple Respiratory: clear to auscultation Cardiovascular: regular rate and rhythm Results Result Diagram: 10/22/16 0445 10/19/16 0525 Results 24 hrs Laboratory Tests Test 10/22/16 04:45 White Blood Count 6.8 # Red Blood Count 4.23 L Hemoglobin 12.2 L Hematocrit 37.2 L Mean Corpuscular Volume 87.9 Mean Corpuscular Hemoglobin 28.8 L Mean Corpuscular Hemoglobin Concent 32.8 Red Cell Distribution Width 14.9 H Platelet Count 257 Mean Platelet Volume 10.3 Neutrophils % 52.7 Lymphocytes % 31.8 Monocytes % 11.3 H Eosinophils % 3.8 Basophils % 0.3 Nucleated Red Blood Cells % 0.0 Neutrophils # 3.6 Lymphocytes # 2.2 Monocytes # 0.8 Eosinophils # 0.3 Basophils # 0.0 Nucleated Red Blood Cells # 0.0 Prothrombin Time 43.5 H Prothrombin Time Ratio 3.4 INR International Normalized Ratio 4.49 Medications Medications Current Medications Ondansetron HCl (Zofran Inj) 4 mg Q6H PRN IV NAUSEA AND/OR VOMITING; Start at 05:00 Acetaminophen (Tylenol Tab) 650 mg Q6H PRN PO PAIN AND OR ELEVATED TEMP Last administered on 10/22/16 05:51; Admin Dose 650 MG; Start 10/19/16 at 05:00 Morphine Sulfate (morphine) 2 mg Q4H PRN IV PAIN Last administered on 22:52; Admin Dose 2 MG; Start 10/19/16 at 05:00 Aspirin (Halfprin) 81 mg DAILY PO Last administered on 10/22/16 09:29; Admin Dose 81 MG; Start 10/19/16 at 09:00 Atorvastatin Calcium (Lipitor) 80 mg HS PO Last administered on 10/21/16 20:24 ; Admin Dose 80 MG; Start 10/19/16 at 21:00 Digoxin (Digoxin) 0.125 mg DAILY@13 PO Last administered on 10/21/16 13:04; Admin Dose 0.125 MG; Start 10/19/16 at 13:00 Folic Acid (Folic Acid) 1 mg DAILY PO Last administered on 10/22/16 09:29; Admin Dose 1 MG; Start 10/19/16 at 09:00 Latanoprost (Xalatan) 1 drop QHS BOTH EYES Last administered on 10/21/16 20:28 ; Admin Dose 1 DROP; Start 10/19/16 at 21:00 Al Hydrox/Mg Hydrox/Simethicone (Mag-Al Plus) 30 ml Q6H PRN PO GASTROINTESTINAL UPSET; Start 10/19/16 at 05:00 Magnesium Oxide (Mag-Ox 400) 400 mg TID PO Last administered on 10/22/16 09:28 ; Admin Dose 400 MG; Start 10/19/16 at 09:00 Pentoxifylline (Trental) 400 mg TID PO Last administered on 10/22/16 09:26; Admin Dose 400 MG; Start 10/19/16 at 09:00 Ranitidine HCl (Zantac) 150 mg BID PO Last administered on 10/22/16 09:28; Admin Dose 150 MG; Start 10/19/16 at 09:00 Tolterodine Tartrate (Detrol) 4 mg DAILY PO Last administered on 10/22/16 09: 26; Admin Dose 4 MG; Start 10/19/16 at 09:00 Tramadol HCl (Ultram) 50 mg TID PO Last administered on 10/22/16 09:26; Admin Dose 50 MG; Start 10/19/16 at 09:00 Metoprolol Tartrate (Lopressor) 50 mg DAILY PO Last administered on 10/22/16 09:28; Admin Dose 50 MG; Start 10/19/16 at 09:00 Multivitamins/ Minerals 1 tab 1 tab DAILY PO Last administered on 10/22/16 09: 28; Admin Dose 1 TAB; Start 10/19/16 at 09:00 Piperacillin Sod/ Tazobactam Sod 100 ml @ 200 mls/hr Q8 IVPB Last administered on 10/22/16 05:48; Admin Dose 200 MLS/HR; Start 10/19/16 at 06:00 Dextrose/Sodium Chloride (D5-1/2ns) 1,000 ml @ 70 mls/hr [id number] IV Last administered on 10/21/16 22:59; Admin Dose 70 MLS/HR; Start 10/19/16 at 05:00 Tamsulosin HCl (Flomax) 0.4 mg HS PO Last administered on 10/21/16 20:24; Admin Dose 0.4 MG; Start 10/20/16 at 21:00 Warfarin Sodium (Coumadin) 2 mg DAILY@17 PO ; Start 10/22/16 at 17:00; Status Future Hold AKILA MONCADA Oct 22, 2016 12:12
[2016-10-22] MEDS: DIGOXIN 0.125 MG TAB PO SCH (13:04)
[2016-10-22] MEDS ORDERED: WARFARIN 2 MG TAB PO SCH (17:00)
[2016-10-22] MEDS: DEXTROSE 5%-0.45% NACL 1,000 ML IV SCH (18:42)
[2016-10-22 19:21] LABS: ADD UMIC YES; UR BILIRUBIN (Dip) NEGATIVE (NEGATIVE); UR BLOOD (Dip) 3+ (NEGATIVE); UR CLARITY CLOUDY (CLEAR); UR COLOR YELLOW (YELLOW); UR GLUCOSE (Dip) NEGATIVE (NEGATIVE); UR KETONES (Dip) NEGATIVE (NEGATIVE); UR LEUKOCYTE ESTERASE (Dip) 3+ (NEGATIVE); UR NITRITE (Dip) NEGATIVE (NEGATIVE); UR TOTAL PROTEIN (Dip) NEGATIVE (NEGATIVE); UR UROBILINOGEN (Dip) 0.2 E.U./dL (0.1-1.0)
[2016-10-22 19:52] LABS: UR BACTERIA MANY
[2016-10-22 20:16] VITALS: BP 139/72; RESP 18
[2016-10-22] MEDS: TAMSULOSIN (SR) 0.4 MG CAP PO SCH (21:03)
[2016-10-22] MEDS: ATORVASTATIN 80 MG TAB PO SCH (21:03)
[2016-10-22] MEDS: LATANOPROST 0.005% 2.5 ML OPH BOTH EYES SCH (21:07)
[2016-10-23] VITALS (7 sets, daily range): BP systolic 151–165; BP diastolic 81–96; PULSE 46–135; RESP 14–19
[2016-10-23] MEDS: PIPER-TAZO 3.375 GM IV (PMX) 100 ML IVPB SCH ×3 (05:17→22:39)
--- NOTE | 2016-10-23 06:09 | PN ---
DATE: 10/22/2016 SUBJECTIVE: Abdominal pain, distal right ureteral stones and right renal stones. The patient state s that he is comfortable and he did not see any stone come out and he did not have any nausea or vom iting. He still has pain on and off. OBJECTIVE FINDINGS: VITAL SIGNS: His temperature is 98.0, blood pressure 146/76, pulse is 130, respirations 16. ABDOMEN: Soft. He does have mild tenderness in the right lower quadrant. The x-ray of the externa l genitalia are normal. LABORATORY DATA: CBC shows a white count of 6.8, hemoglobin 12.2, hematocrit 37.2. BUN is 20, crea tinine 1.26, sodium 146, potassium 4.3, chloride 110, CO2 28. The PT is 43.5, INR is 4.49. The pat ient was on Coumadin and that has been put on hold since yesterday. The KUB that he had done today at 6 o'clock this morning reported as a right renal calculi and distal right ureter calculi faintly visualized. The patient does have also gallstones, atherosclerosis, left renal artery stent, and a elias and screw in the right femur. IMPRESSION: Distal right ureteral stones and right renal stones. The stones were initially measure d as small stones. The patient in principal should be able to pass them, but it looks like he has n ot done, and so the plan is to watch him over the next 2 days and if he does not pass them, then we will have to go a cystoscopy and ureteroscopy and remove the stones for him, and by that time hopefu lly the INR will have come down to a therapeutic level, rather than over -anticoagulated. Dictated By: GAETANO ROMAN/ROMEL Conf#: [id number] DID#: [id number]
[2016-10-23 06:29] LABS: INR 4.83; PROTIME 46.1 Sec (12.2-14.2); PT RATIO 3.6
[2016-10-23 06:35] LABS: CALCIUM 9.2 mg/dl (8.4-10.2); CREATININE 0.9 mg/dl (0.61-1.24); POTASSIUM 3.1 mmol/L (3.5-5.1)
[2016-10-23] MEDS: PANTOPRAZOLE (EC) 40 MG TAB PO SCH (08:45)
[2016-10-23] MEDS: FOLIC ACID 1 MG TAB PO SCH (08:45)
[2016-10-23] MEDS: ASPIRIN (EC) 81 MG TAB PO SCH (08:45)
[2016-10-23] MEDS: MAGNESIUM OXIDE 400 MG TAB PO SCH ×3 (08:45→22:13)
[2016-10-23] MEDS: METOPROLOL 50 MG TAB PO SCH (08:46)
[2016-10-23] MEDS: MULTIVITAMINS/MINERALS TAB PO SCH (08:47)
[2016-10-23] MEDS: PENTOXIFYLLINE (SR) 400 MG TAB PO SCH ×3 (08:48→22:12)
[2016-10-23] MEDS: RANITIDINE 150 MG TAB PO SCH ×2 (08:48→22:13)
[2016-10-23] MEDS: traMADol 50 MG TAB PO SCH ×3 (08:48→22:13)
[2016-10-23] MEDS: TOLTERODINE 2 MG TAB PO SCH (08:48)
[2016-10-23] MEDS: DEXTROSE 5%-0.45% NACL 1,000 ML IV SCH (09:06)
--- NOTE | 2016-10-23 11:32 | PN ---
Date/Time of Note Date/Time of Note DATE: 10/23/16 TIME: 11:31 Assessment/Plan VTE Prophylaxis VTE Prophylaxis Intervention: ambulation Lines/Catheters IV [facility] Type [facility] Peripheral IV Assessment/Plan Chief Complaint/Hosp Course 1. The patient has acute renal colic, ureteral stone, kidney stone and bladder stone. 2. The patient has systemic inflammatory response syndrome. 3. Dehydration. 4. Hypernatremia. 5. History of chronic atrial fibrillation. 6. History of rheumatic heart disease. 7. History of mitral valve replacement, mechanical, per patient. 8. History of dyslipidemia. 9. History of hypertension. 10. History of peripheral vascular disease. 11. History of prostate cancer being monitored by Dr. Martins. 12. Atherosclerosis Problems: Assessment/Plan 1. Transfer telemetry per dr Domínguez earlier order 2. Change IV fluids to D5% W 70 ml hour Subjective 24 Hr Interval Summary Constitutional: no complaints Exam/Review of Systems Vital Signs Vitals Vital Signs Date Time Temp Pulse Resp B/P Pulse Ox O2 Delivery O2 Flow Rate FiO2 10/23/16 10:00 46 154/82 10/23/16 08:20 98.3 18 97 Intake and Output 10/22/16 10/22/16 10/23/16 15:00 23:00 07:00 Intake Total 200 ml 2250 ml 1010 ml Output Total 1000 ml 1150 ml Balance 200 ml 1250 ml -140 ml Exam Head: normocephalic ENMT: nl external ears & nose Neck: supple Respiratory: clear to auscultation Cardiovascular: regular rate and rhythm Results Result Diagram: 10/22/16 0445 10/23/16 0510 Results 24 hrs Laboratory Tests Test 10/22/16 18:50 10/23/16 05:10 Urine Color YELLOW Urine Clarity CLOUDY H Urine pH 6.5 Urine Specific [place] <=1.005 L Urine Ketones NEGATIVE Urine Nitrite NEGATIVE Urine Bilirubin NEGATIVE Urine Urobilinogen 0.2 E.U./dL Urine Leukocyte Esterase 3+ H Urine Microscopic RBC 10-25 Urine Microscopic WBC >200 Urine Bacteria MANY Urine Hemoglobin 3+ H Urine Glucose NEGATIVE Urine Total Protein NEGATIVE Prothrombin Time 46.1 H Prothrombin Time Ratio 3.6 INR International Normalized Ratio 4.83 Sodium Level 146 H Potassium Level 3.1 L Chloride Level 112 H Carbon Dioxide Level 24 Anion Gap 13 Blood Urea Nitrogen 2 L Creatinine 0.90 Glucose Level 106 Calcium Level 9.2 Medications Medications Current Medications Ondansetron HCl (Zofran Inj) 4 mg Q6H PRN IV NAUSEA AND/OR VOMITING; Start at 05:00 Acetaminophen (Tylenol Tab) 650 mg Q6H PRN PO PAIN AND OR ELEVATED TEMP Last administered on 10/22/16 05:51; Admin Dose 650 MG; Start 10/19/16 at 05:00 Morphine Sulfate (morphine) 2 mg Q4H PRN IV PAIN Last administered on 22:52; Admin Dose 2 MG; Start 10/19/16 at 05:00 Aspirin (Halfprin) 81 mg DAILY PO Last administered on 10/23/16 08:45; Admin Dose 81 MG; Start 10/19/16 at 09:00 Atorvastatin Calcium (Lipitor) 80 mg HS PO Last administered on 10/22/16 21:03 ; Admin Dose 80 MG; Start 10/19/16 at 21:00 Digoxin (Digoxin) 0.125 mg DAILY@13 PO Last administered on 10/22/16 13:04; Admin Dose 0.125 MG; Start 10/19/16 at 13:00 Folic Acid (Folic Acid) 1 mg DAILY PO Last administered on 10/23/16 08:45; Admin Dose 1 MG; Start 10/19/16 at 09:00 Latanoprost (Xalatan) 1 drop QHS BOTH EYES Last administered on 10/22/16 21:07 ; Admin Dose 1 DROP; Start 10/19/16 at 21:00 Al Hydrox/Mg Hydrox/Simethicone (Mag-Al Plus) 30 ml Q6H PRN PO GASTROINTESTINAL UPSET; Start 10/19/16 at 05:00 Magnesium Oxide (Mag-Ox 400) 400 mg TID PO Last administered on 10/23/16 08:45 ; Admin Dose 400 MG; Start 10/19/16 at 09:00 Pentoxifylline (Trental) 400 mg TID PO Last administered on 10/23/16 08:48; Admin Dose 400 MG; Start 10/19/16 at 09:00 Ranitidine HCl (Zantac) 150 mg BID PO Last administered on 10/23/16 08:48; Admin Dose 150 MG; Start 10/19/16 at 09:00 Tolterodine Tartrate (Detrol) 4 mg DAILY PO Last administered on 10/23/16 08: 48; Admin Dose 4 MG; Start 10/19/16 at 09:00 Tramadol HCl (Ultram) 50 mg TID PO Last administered on 10/23/16 08:48; Admin Dose 50 MG; Start 10/19/16 at 09:00 Metoprolol Tartrate (Lopressor) 50 mg DAILY PO Last administered on 10/23/16 08:46; Admin Dose 50 MG; Start 10/19/16 at 09:00 Multivitamins/ Minerals 1 tab 1 tab DAILY PO Last administered on 10/23/16 08: 47; Admin Dose 1 TAB; Start 10/19/16 at 09:00 Piperacillin Sod/ Tazobactam Sod 100 ml @ 200 mls/hr Q8 IVPB Last administered on 10/23/16 05:17; Admin Dose 200 MLS/HR; Start 10/19/16 at 06:00 Dextrose/Sodium Chloride (D5-1/2ns) 1,000 ml @ 70 mls/hr [id number] IV Last administered on 10/22/16 18:42; Admin Dose 70 MLS/HR; Start 10/19/16 at 05:00 Tamsulosin HCl (Flomax) 0.4 mg HS PO Last administered on 10/22/16 21:03; Admin Dose 0.4 MG; Start 10/20/16 at 21:00 Warfarin Sodium (Coumadin) 2 mg DAILY@17 PO ; Start 10/22/16 at 17:00; Status Future Hold AKILA MONCADA Oct 23, 2016 11:32
[2016-10-23] MEDS: DEXTROSE 5% 1,000 ML IV SCH (11:52)
[2016-10-23] MEDS ORDERED: VITAMIN A & D 5 GM OINT PACKET TOP ONE (14:39)
[2016-10-23] MEDS: DIGOXIN 0.125 MG TAB PO SCH (14:44)
[2016-10-23] MEDS ORDERED: POTASSIUM CHLORIDE (SR) 20 MEQ TAB PO STA (15:17)
--- NOTE | 2016-10-23 19:13 | CONS ---
DATE OF ADMISSION: 10/19/2016 DATE OF CONSULTATION: TYPE OF CONSULTATION: Cardiology Thank you, Dr. Noble, for cardiology consultation. HISTORY OF PRESENT ILLNESS: The patient is a 76-year-old gentleman who comes in with pain in the ri ght side of the abdomen and subsequently was diagnosed with right ureteral and renal stones. He den ies any chest pain, shortness of breath, dizziness, syncope or palpitation. Denies fever, chills or rigors. Denies nausea or vomiting. PAST MEDICAL HISTORY: Significant for: 1. Metallic mitral valve replacement. 2. Severe peripheral arterial disease. 3. Coronary artery disease. 4. Atrial fibrillation. 5. Gastritis. 6. Peptic ulcer disease. 7. Anemia. 8. Hypertension. 9. Dyslipidemia. 10. Rheumatic heart disease. 11. Prostate cancer. 12. History of right BKA. PAST SURGICAL HISTORY: 1. Right BKA. 2. Mitral valve replacement. SOCIAL HISTORY: No smoking, alcohol, or recreational drugs. FAMILY HISTORY: Positive for rheumatic heart disease. ALLERGIES: NONE. CURRENT MEDICATIONS: Include: 1. Ranitidine. 2. Protonix. 3. Aspirin. 4. Folic acid. 5. Detrol. 6. Lopressor. 7. Digoxin. 8. Lipitor. 9. Flomax. 10. Zosyn. 11. Xalatan. 12. Magnesium oxide. 13. Trental. 14. Tramadol. REVIEW OF SYSTEMS: Unremarkable except that mentioned in the HPI. PHYSICAL EXAMINATION: VITAL SIGNS: Temperature is 97.8, heart rate of 113, blood pressure 151/81 mmHg, breathing at 14 an d saturating 95%. GENERAL: The patient awake, alert, oriented, in no apparent distress. NECK: No JVD or carotid bruit. CARDIOVASCULAR: Irregular rate, irregular rhythm with a prosthetic valve click heard across the pre cordium. LUNGS: Clear to auscultation. ABDOMEN: Soft. Bowel sounds are present. There is no organomegaly. EXTREMITIES: No pedal edema. Pedal pulses felt bilaterally. IMAGING: Chest x-ray shows no congestion or infiltrate. LABORATORY DATA: WBC 6.8, hemoglobin 12.2, hematocrit 37.2 with platelets of 257. Sodium 143, pota ssium 3.1, chloride 112, CO2 of 24, BUN 2, creatinine 0.9. ASSESSMENT AND PLAN: A 76-year-old gentleman with: 1. Right ureteral and kidney stones. 2. Status post mitral valve replacement. 3. Right below-knee amputation. 4. History of rheumatic heart disease. 5. Severe peripheral arterial disease. 6. Coronary artery disease. 7. Chronic atrial fibrillation. 8. Gastritis. 9. Peptic ulcer disease. 10. Anemia. 11. Hypertension. 12. Dyslipidemia. 13. History of prostate cancer. The patient is tachycardic, blood pressure controlled. RECOMMENDATIONS: 1. The patient started on low-dose metoprolol to control heart rate. 2. Trend troponins, BNP. 3. Echocardiogram to assess for function of prosthetic mitral valve. 4. Replete potassium. 5. Continue digoxin. 6. Continue Lipitor. 7. Continue empiric antibiotics. 8. Keep magnesium more than 2. 9. Continue Trental. 10. Continue tramadol. Dictated By: TYRA MCCAULEY MD SR/ROMEL Conf#: [id number] DID#: [id number]
[2016-10-23] MEDS ORDERED: DIGOXIN 0.25 MG TAB PO ONE (20:00)
[2016-10-23] MEDS ORDERED: DILTIAZEM 30 MG TAB PO PRN (20:00)
[2016-10-23] MEDS ORDERED: DILTIAZEM 25 MG INJ IV PRN (20:45)
[2016-10-23] MEDS: LATANOPROST 0.005% 2.5 ML OPH BOTH EYES SCH (21:00)
[2016-10-23] MEDS ORDERED: DIGOXIN 500 MCG INJ IV ONE (21:00)
[2016-10-23] MEDS: ATORVASTATIN 80 MG TAB PO SCH (22:12)
[2016-10-23] MEDS: TAMSULOSIN (SR) 0.4 MG CAP PO SCH (22:13)
[2016-10-24] VITALS (11 sets, daily range): BP systolic 117–162; BP diastolic 58–78; PULSE 68–140; RESP 15–18
[2016-10-24] MEDS: DEXTROSE 5% 1,000 ML IV SCH (05:15)
[2016-10-24] MEDS: PIPER-TAZO 3.375 GM IV (PMX) 100 ML IVPB SCH ×3 (05:15→21:06)
[2016-10-24 06:34] LABS: ADD SCAN DIFF NO
[2016-10-24 06:51] LABS: BASOPHILS % 0.6 % (0.0-2.0); EOSINOPHILS # 0.4 10^3/ul (0.0-0.5); EOSINOPHILS % 7.2 % (0.0-7.0); HEMATOCRIT 39.3 % (42.0-52.0); HEMOGLOBIN 12.8 g/dl (14.0-18.0); LYMPHOCYTES # 1.2 10^3/ul (0.8-2.9); LYMPHOCYTES % 21.4 % (15.0-51.0); MEAN CORPUSCULAR HEMOGLOBIN 28.7 pg (29.0-33.0); MEAN CORPUSCULAR HGB CONC 32.6 g/dl (32.0-37.0); MEAN CORPUSCULAR VOLUME 88.1 fl (82.0-101.0); MEAN PLATELET VOLUME 9.7 fl (7.4-10.4); MONOCYTE # 0.5 10^3/ul (0.3-0.9); MONOCYTES % 9.1 % (0.0-11.0); NEUTROPHIL # 3.3 10^3/ul (1.6-7.5); NEUTROPHILS % 61.5 % (39.0-77.0); PLATELET COUNT 261 10^3/UL (140-415); RED BLOOD COUNT 4.46 10^6/ul (4.70-6.10); RED CELL DISTRIBUTION WIDTH 15.2 % (11.5-14.5); WHITE BLOOD COUNT 5.4 10^3/ul (4.8-10.8)
[2016-10-24 07:01] LABS: INR 3.17; PT RATIO 2.6
[2016-10-24 07:07] LABS: CALCIUM 9.2 mg/dl (8.4-10.2); CREATININE 0.92 mg/dl (0.61-1.24); POTASSIUM 3.5 mmol/L (3.5-5.1)
[2016-10-24 07:42] LABS: THYROID STIMULATING HORMONE 0.478 MIU/L (0.465-4.680)
[2016-10-24] MEDS: MAGNESIUM OXIDE 400 MG TAB PO SCH ×3 (08:38→21:05)
[2016-10-24] MEDS: ACETAMINOPHEN 325 MG TAB PO PRN (08:38)
[2016-10-24] MEDS: FOLIC ACID 1 MG TAB PO SCH (08:38)
[2016-10-24] MEDS: traMADol 50 MG TAB PO SCH ×3 (08:38→21:05)
[2016-10-24] MEDS: METOPROLOL 50 MG TAB PO SCH (08:38)
[2016-10-24] MEDS: PENTOXIFYLLINE (SR) 400 MG TAB PO SCH ×3 (08:38→21:05)
[2016-10-24] MEDS: ASPIRIN (EC) 81 MG TAB PO SCH (08:38)
[2016-10-24] MEDS: PANTOPRAZOLE (EC) 40 MG TAB PO SCH (08:38)
[2016-10-24] MEDS: MULTIVITAMINS/MINERALS TAB PO SCH (08:38)
[2016-10-24] MEDS: RANITIDINE 150 MG TAB PO SCH ×2 (08:38→21:05)
[2016-10-24] MEDS: TOLTERODINE 2 MG TAB PO SCH (08:41)
--- NOTE | 2016-10-24 11:39 | PN ---
Date/Time of Note Date/Time of Note DATE: 10/24/16 TIME: 11:38 Assessment/Plan VTE Prophylaxis VTE Prophylaxis Intervention: SCD's Lines/Catheters IV C[facility]ter Type (from [facility] Peripheral IV Urinary Cath still in place: No Assessment/Plan Chief Complaint/Hosp Course 1. The patient has acute renal colic, ureteral stone, kidney stone and bladder stone. 2. The patient has systemic inflammatory response syndrome. 3. Dehydration. 4. Hypernatremia. 5. History of chronic atrial fibrillation. 6. History of rheumatic heart disease. 7. History of mitral valve replacement, mechanical, per patient. 8. History of dyslipidemia. 9. History of hypertension. 10. History of peripheral vascular disease. 11. History of prostate cancer being monitored by Dr. Martins. 12. Atherosclerosis Problems: Assessment/Plan 1. Per dr Martins 2. Continue strain urine Subjective 24 Hr Interval Summary Subjective hx not possible: pt non-verbal Constitutional: no complaints Cardiovascular: no complaints Gastrointestinal: no complaints Genitourinary: no complaints Exam/Review of Systems Vital Signs Vitals Vital Signs Date Time Temp Pulse Resp B/P Pulse Ox O2 Delivery O2 Flow Rate FiO2 10/24/16 09:24 114 10/24/16 07:58 97.8 15 121/69 96 Intake and Output 10/23/16 10/23/16 10/24/16 15:00 23:00 07:00 Intake Total 480 ml 1355 ml Output Total 402 ml 500 ml Balance 78 ml 855 ml Exam Constitutional: alert, oriented Neck: supple Respiratory: clear to auscultation Cardiovascular: regular rate and rhythm Results Result Diagram: 10/24/16 0619 10/24/16 0619 Results 24 hrs Laboratory Tests Test 10/24/16 00:45 10/24/16 06:19 Troponin I 0.050 0.056 White Blood Count 5.4 # Red Blood Count 4.46 L Hemoglobin 12.8 L Hematocrit 39.3 L Mean Corpuscular Volume 88.1 Mean Corpuscular Hemoglobin 28.7 L Mean Corpuscular Hemoglobin Concent 32.6 Red Cell Distribution Width 15.2 H Platelet Count 261 Mean Platelet Volume 9.7 Neutrophils % 61.5 Lymphocytes % 21.4 Monocytes % 9.1 Eosinophils % 7.2 H Basophils % 0.6 Nucleated Red Blood Cells % 0.0 Neutrophils # 3.3 Lymphocytes # 1.2 Monocytes # 0.5 Eosinophils # 0.4 Basophils # 0.0 Nucleated Red Blood Cells # 0.0 Prothrombin Time 33.0 #H Prothrombin Time Ratio 2.6 INR International Normalized Ratio 3.17 Sodium Level 142 Potassium Level 3.5 Chloride Level 109 Carbon Dioxide Level 26 Anion Gap 11 Blood Urea Nitrogen 3 L Creatinine 0.92 Glucose Level 108 Calcium Level 9.2 B-Type Natriuretic Peptide 4680 H Thyroid Stimulating Hormone (TSH) 0.478 Medications Medications Current Medications Ondansetron HCl (Zofran Inj) 4 mg Q6H PRN IV NAUSEA AND/OR VOMITING; Start at 05:00 Acetaminophen (Tylenol Tab) 650 mg Q6H PRN PO PAIN AND OR ELEVATED TEMP Last administered on 10/24/16 08:38; Admin Dose 650 MG; Start 10/19/16 at 05:00 Morphine Sulfate (morphine) 2 mg Q4H PRN IV PAIN Last administered on 22:52; Admin Dose 2 MG; Start 10/19/16 at 05:00 Aspirin (Halfprin) 81 mg DAILY PO Last administered on 10/24/16 08:38; Admin Dose 81 MG; Start 10/19/16 at 09:00 Atorvastatin Calcium (Lipitor) 80 mg HS PO Last administered on 10/23/16 22:12 ; Admin Dose 80 MG; Start 10/19/16 at 21:00 Digoxin (Digoxin) 0.125 mg DAILY@13 PO Last administered on 10/23/16 14:44; Admin Dose 0.125 MG; Start 10/19/16 at 13:00 Folic Acid (Folic Acid) 1 mg DAILY PO Last administered on 10/24/16 08:38; Admin Dose 1 MG; Start 10/19/16 at 09:00 Latanoprost (Xalatan) 1 drop QHS BOTH EYES Last administered on 10/23/16 21:00 ; Admin Dose 1 DROP; Start 10/19/16 at 21:00 Al Hydrox/Mg Hydrox/Simethicone (Mag-Al Plus) 30 ml Q6H PRN PO GASTROINTESTINAL UPSET; Start 10/19/16 at 05:00 Magnesium Oxide (Mag-Ox 400) 400 mg TID PO Last administered on 10/24/16 08:38 ; Admin Dose 400 MG; Start 10/19/16 at 09:00 Pentoxifylline (Trental) 400 mg TID PO Last administered on 10/24/16 08:38; Admin Dose 400 MG; Start 10/19/16 at 09:00 Ranitidine HCl (Zantac) 150 mg BID PO Last administered on 10/24/16 08:38; Admin Dose 150 MG; Start 10/19/16 at 09:00 Tolterodine Tartrate (Detrol) 4 mg DAILY PO Last administered on 10/24/16 08: 41; Admin Dose 4 MG; Start 10/19/16 at 09:00 Tramadol HCl (Ultram) 50 mg TID PO Last administered on 10/24/16 08:38; Admin Dose 50 MG; Start 10/19/16 at 09:00 Metoprolol Tartrate (Lopressor) 50 mg DAILY PO Last administered on 10/24/16 08:38; Admin Dose 50 MG; Start 10/19/16 at 09:00 Multivitamins/ Minerals 1 tab 1 tab DAILY PO Last administered on 10/24/16 08: 38; Admin Dose 1 TAB; Start 10/19/16 at 09:00 Piperacillin Sod/ Tazobactam Sod (Zosyn 3.375gm/ 100 ml (Pmx)) 100 ml @ 200 mls /hr Q8 IVPB Last administered on 10/24/16 05:15; Admin Dose 200 MLS/HR; Start 10/19/16 at 06:00 Tamsulosin HCl (Flomax) 0.4 mg HS PO Last administered on 10/23/16 22:13; Admin Dose 0.4 MG; Start 10/20/16 at 21:00 Warfarin Sodium 2 mg 2 mg DAILY@17 PO ; Start 10/22/16 at 17:00; Status Future Hold Dextrose (D5W) 1,000 ml @ 0 mls/hr [id number] IV Last administered on 10/24/16 05:15; Admin Dose 5 MLS/HR; Start 10/23/16 at 11:30 AKILA MONCADA Oct 24, 2016 11:39
[2016-10-24] MEDS: DIGOXIN 0.125 MG TAB PO SCH (13:21)
--- NOTE | 2016-10-24 14:26 | CONS ---
Date/Time of Note Date/Time of Note DATE: 10/24/16 TIME: 14:22 Assessment/Plan Assessment/Plan Additional Assessment/Plan 1. Metallic mitral valve replacement. 2. Severe peripheral arterial disease. 3. Coronary artery disease. 4. Atrial fibrillation. 5. Gastritis. 6. Peptic ulcer disease. 7. Anemia. 8. Hypertension. 9. Dyslipidemia. 10. Rheumatic heart disease. 11. Prostate cancer. 12. History of right BKA. He has been ruled out for ACS with serial negative troponin's Heart failure clinically compensated Converted to sinus rhythm at around 10AM Awaiting echo Continue antibiotics Continue Metoprolol Continue Digoxin Continue Lipitor Hold Coumadin in anticipation of endoscopic procedure Consultation Date/Type/Reason Admit Date/Time Oct 19, 2016 at 00:22 Initial Consult Date Exam/Review of Systems Vital Signs Vitals Vital Signs Date Time Temp Pulse Resp B/P Pulse Ox O2 Delivery O2 Flow Rate FiO2 10/24/16 13:24 68 10/24/16 12:00 97.2 148/68 10/24/16 07:58 15 96 Intake and Output 10/23/16 10/23/16 10/24/16 15:00 23:00 07:00 Intake Total 480 ml 1355 ml Output Total 402 ml 500 ml Balance 78 ml 855 ml Exam Constitutional: alert, oriented Head: atraumatic, normocephalic Neck: non-tender, supple Respiratory: clear to auscultation Cardiovascular: regular rate and rhythm Gastrointestinal: nl liver, spleen, non-tender, soft Extremities: normal pulses Results Result Diagram: 10/24/16 0619 10/24/16 0619 Results 24 hrs Laboratory Tests Test 10/24/16 00:45 10/24/16 06:19 10/24/16 12:45 Troponin I 0.050 0.056 0.036 White Blood Count 5.4 # Red Blood Count 4.46 L Hemoglobin 12.8 L Hematocrit 39.3 L Mean Corpuscular Volume 88.1 Mean Corpuscular Hemoglobin 28.7 L Mean Corpuscular Hemoglobin Concent 32.6 Red Cell Distribution Width 15.2 H Platelet Count 261 Mean Platelet Volume 9.7 Neutrophils % 61.5 Lymphocytes % 21.4 Monocytes % 9.1 Eosinophils % 7.2 H Basophils % 0.6 Nucleated Red Blood Cells % 0.0 Neutrophils # 3.3 Lymphocytes # 1.2 Monocytes # 0.5 Eosinophils # 0.4 Basophils # 0.0 Nucleated Red Blood Cells # 0.0 Prothrombin Time 33.0 #H Prothrombin Time Ratio 2.6 INR International Normalized Ratio 3.17 Sodium Level 142 Potassium Level 3.5 Chloride Level 109 Carbon Dioxide Level 26 Anion Gap 11 Blood Urea Nitrogen 3 L Creatinine 0.92 Glucose Level 108 Calcium Level 9.2 B-Type Natriuretic Peptide 4680 H Thyroid Stimulating Hormone (TSH) 0.478 Medications Medications Current Medications Ondansetron HCl (Zofran Inj) 4 mg Q6H PRN IV NAUSEA AND/OR VOMITING; Start at 05:00 Acetaminophen (Tylenol Tab) 650 mg Q6H PRN PO PAIN AND OR ELEVATED TEMP Last administered on 10/24/16 08:38; Admin Dose 650 MG; Start 10/19/16 at 05:00 Morphine Sulfate (morphine) 2 mg Q4H PRN IV PAIN Last administered on 22:52; Admin Dose 2 MG; Start 10/19/16 at 05:00 Aspirin (Halfprin) 81 mg DAILY PO Last administered on 10/24/16 08:38; Admin Dose 81 MG; Start 10/19/16 at 09:00 Atorvastatin Calcium (Lipitor) 80 mg HS PO Last administered on 10/23/16 22:12 ; Admin Dose 80 MG; Start 10/19/16 at 21:00 Digoxin (Digoxin) 0.125 mg DAILY@13 PO Last administered on 10/24/16 13:21; Admin Dose 0.125 MG; Start 10/19/16 at 13:00 Folic Acid (Folic Acid) 1 mg DAILY PO Last administered on 10/24/16 08:38; Admin Dose 1 MG; Start 10/19/16 at 09:00 Latanoprost (Xalatan) 1 drop QHS BOTH EYES Last administered on 10/23/16 21:00 ; Admin Dose 1 DROP; Start 10/19/16 at 21:00 Al Hydrox/Mg Hydrox/Simethicone (Mag-Al Plus) 30 ml Q6H PRN PO GASTROINTESTINAL UPSET; Start 10/19/16 at 05:00 Magnesium Oxide (Mag-Ox 400) 400 mg TID PO Last administered on 10/24/16 13:21 ; Admin Dose 400 MG; Start 10/19/16 at 09:00 Pentoxifylline (Trental) 400 mg TID PO Last administered on 10/24/16 13:20; Admin Dose 400 MG; Start 10/19/16 at 09:00 Ranitidine HCl (Zantac) 150 mg BID PO Last administered on 10/24/16 08:38; Admin Dose 150 MG; Start 10/19/16 at 09:00 Tolterodine Tartrate (Detrol) 4 mg DAILY PO Last administered on 10/24/16 08: 41; Admin Dose 4 MG; Start 10/19/16 at 09:00 Tramadol HCl (Ultram) 50 mg TID PO Last administered on 10/24/16 13:24; Admin Dose 50 MG; Start 10/19/16 at 09:00 Metoprolol Tartrate (Lopressor) 50 mg DAILY PO Last administered on 10/24/16 08:38; Admin Dose 50 MG; Start 10/19/16 at 09:00 Multivitamins/ Minerals 1 tab 1 tab DAILY PO Last administered on 10/24/16 08: 38; Admin Dose 1 TAB; Start 10/19/16 at 09:00 Piperacillin Sod/ Tazobactam Sod (Zosyn 3.375gm/ 100 ml (Pmx)) 100 ml @ 200 mls /hr Q8 IVPB Last administered on 10/24/16 13:21; Admin Dose 200 MLS/HR; Start 10/19/16 at 06:00 Tamsulosin HCl (Flomax) 0.4 mg HS PO Last administered on 10/23/16 22:13; Admin Dose 0.4 MG; Start 10/20/16 at 21:00 Warfarin Sodium 2 mg 2 mg DAILY@17 PO ; Start 10/22/16 at 17:00; Status Future Hold Dextrose (D5W) 1,000 ml @ 0 mls/hr [id number] IV Last administered on 10/24/16 05:15; Admin Dose 5 MLS/HR; Start 10/23/16 at 11:30 TYRA MCCAULEY M.D. Oct 24, 2016 14:26
--- NOTE | 2016-10-24 14:35 | PN ---
DATE: 10/24/2016 SUBJECTIVE: The patient does have distal right ureteral stones and kidney stones and may be bladder stones. The patient, however, denies having any pain in the abdomen or pelvic area and he is voidi ng well. He says that he cannot urinate without having a bowel movement, so he tries to use a bedpa n whenever it is possible. OBJECTIVE FINDINGS: VITAL SIGNS: Temperature is 97.2, blood pressure 148/68. Pulse is 68. Respiration is 15. ABDOMEN: Soft. There is no abdominal mass palpable or tenderness. LABORATORY DATA: His CBC shows a white count of 5.4, hemoglobin 12.8. Hematocrit is 39.3. The BUN is 3, creatinine 0.92, sodium 142, potassium 3.5, chloride 109, CO2 of 26. The urinalysis still sh owed more than 200 WBCs, 10 to 25 WBCs per high power field, 3+ leukocyte esterase; however, the uri ne culture is no growth after 48 hours. Plain film of the abdomen on the showed that the dista l right ureteral calculi faintly visualized. As they are faintly visualized and I am not sure whether these are the stones that were seen on the CT scan, I would go ahead and proceed and do a CT of the abdomen and pelvis again and see if the sto parth are still in the same location. Then we will go ahead and do a cystoscopy and right ureteroscop y and remove the stones. If the stone has passed, therefore, we do not have to do anything else. I did order the CT scan already. Dictated By: GAETANO ROMAN/ROMEL Conf#: [id number] DID#: [id number]
[2016-10-24] MEDS ORDERED: LOPERAMIDE 2 MG CAP PO PRN (15:00)
--- NOTE | 2016-10-24 15:03 | RADRPT ---
Echocardiogram Report Patient Name: LYNDSEY SAWYER Gender: Male Date: 1940 Study Date: 24-Oct-2016 Computer Support Analyst: [facility] Location: [address] Ref. Physician: CHARLES MCCAULEY Quality: Technically Difficult Study Procedures: Transthoracic echocardiogram with complete 2D, M-Mode, and doppler examination. Indications: Evaluate Left Ventricular function. 2D/M Mode Doppler Measurement Value Normal Ranges Measurement Value Normal Ranges LVIDd 2D 4.1 3.5 - 5.6 cm HELDER Vmax 0.5 cm2 LVIDs 2D 3.5 2.1 - 4.1 cm HELDER VTI 0.5 cm2 LVPWd 2D 1.3 0.6 - 1.1 cm AV Mean Beni 1.6 m/sec IVSd 2D 1.3 0.6 - 1.1 cm AV Mean PG 14.3 mmHg AoR Diam 2D 2.0 2.0 - 3.7 cm AV Peak Beni 3.1 m/sec EDV 2D 75.4 cm3 AV Peak PG 37.4 mmHg ESV 2D 44.1 cm3 AV VTI 56.9 cm LA Dimen 2D 3.4 2.3 - 4.0 cm AI Peak PG 70.9 mmHg LVOT Diam 1.8 cm AI Peak Beni 4.2 m/sec AI PHT 829.5 msec LVOT Mean Beni 0.3 m/sec LVOT Mean PG 0.6 mmHg LVOT Peak Beni 0.6 m/sec LVOT Peak PG 2.3 mmHg LVOT VTI 11.5 cm MV Peak Beni 1.7 m/sec MV Peak PG 11.7 mmHg MV Mean Beni 0.7 m/sec MV Mean PG 3.1 mmHg MV VTI 29.0 cm TR Peak Beni 3.7 m/sec TR Peak PG 54.0 mmHg RVSP 62.0 mmHg Findings Left Ventricle: Normal left ventricular cavity size. Mild concentric left ventricular hypertrophy. Moderate global left ventricular systolic dysfunction. Ejection fraction is visually estimated at 25 %. Abnormal Diastolic Function. Right Ventricle: Normal right ventricular size. Mild right ventricular hypokinesis. Left Atrium: The left atrium is normal in size. Right Atrium: The right atrium is normal in size. Mitral Valve: Trace mitral regurgitation. Mitral Valve Mechanical Prosthesis. Mitral valve Max Velocity 1.71 m/sec. MaxPG 11.70 mmHg. MeanPG 3.10 mmHg. Mitral Valve Area by PHT5.80 cm2. Mitral Valve Area by Continuity1.00 cm2. Aortic Valve: Mild to moderate aortic stenosis. Aortic valve Max velocity 3.06 m/sec. Max PG 37.40 mmHg. Mean PG 14.30 mmHg. Aortic valve area 0.50 cm2. Aortic cusps appear mildly calcified. Moderate aortic valve regurgitation. Tricuspid Valve: Tricuspid valve not well visualized. Estimated peak PA systolic pressure 62 mmHg. There is mild to moderate tricuspid regurgitation. Pericardium: Normal pericardium with no significant pericardial effusion. Aorta: Normal aortic root. IVC: Normal size and normal respiratory collapse consistent with normal right atrial pressure. Conclusions 1.Normal left ventricular cavity size. Mild concentric left ventricular hypertrophy. Moderate global left ventricular systolic dysfunction. Ejection fraction is visually estimated at 25 %. Abnormal Diastolic Function. 2.Normal right ventricular size. Mild right ventricular hypokinesis. 3.Trace mitral regurgitation. Mitral Valve Mechanical Prosthesis. 4.Mild to moderate aortic stenosis. Aortic cusps appear mildly calcified. Moderate aortic valve regurgitation. 5.Tricuspid valve not well visualized. Estimated peak PA systolic pressure 62 mmHg. There is Severe tricuspid regurgitation. 6.Normal pericardium with no significant pericardial effusion. 7.Recommend AXEL to further evaluate aortic valve stenosis due to poor acoustic windows. Electronically Signed By: Charles Mccauley 24-Oct-2016 15:02:28 0700 Patient Name: LYNDSEY SAWYER Study Date: 24-Oct-2016 [id number]
--- NOTE | 2016-10-24 19:37 | RADRPT ---
PROCEDURE: CT Abdomen and pelvis without contrast. CLINICAL INDICATION: Abdominal pain, distal ureteral calculi TECHNIQUE: Routine CT scan of the abdomen and pelvis was performed on a high resolution multidetec tor scanner without intravenous contrast. One or more of the following dose reduction techniques wer e used: Automated exposure control; Adjustment of the mA and/or kV according to patient size; Use of iterative reconstruction technique. CTDI = 11 mGy. DLP = 623 mGy-cm. COMPARISON: CT abdomen pelvis 10/18/2016 FINDINGS: Lung bases: 10 mm pulmonary nodule with irregular margins present within the right lower lobe, outsi de of the field of view of the previous examination. Mild peribronchial thickening is evident sugge stive of chronic small airways disease. Trace bilateral pleural effusions and pleural thickening are present in the lung bases. Postoperative changes from mitral valve replacement are evident. Liver: No focal lesions. Normal morphology and attenuation. Gallbladder: Normal appearance of the wall, no inflammatory changes. Cholelithiasis again noted. Normal appearance of the extrahepatic biliary tree. Pancreas: Normal morphology and attenuation. Spleen: Normal in size. Adrenal glands: Normal morphology and attenuation. Kidneys: Left kidney is again moderately atrophic as compared to the right. A few nonobstructive ri ght renal calculi are present measuring up to 7 mm. Mild right-sided hydronephrosis with dilatation of the right ureter is again observed. A few small remaining calculi are present within the distal ureter measuring less than 2 mm. Punctate calculi observed within the right ureter vesicular junct ion. Small calculi also noted layering within the urinary bladder Bladder: Normal. Prostate: Normal size. Free fluid: None. Alimentary tract: Small hiatal hernia with minimal para esophageal fat herniation. Normal caliber without evidence of obstruction. No evidence of wall thickening. Normal appendix. Lymph nodes: Normal morphology and attenuation. Not pathologically enlarged by CT criteria. Arterial system: Normal caliber aorta. Mild atherosclerotic changes. Left renal artery stent is not ed. Venous system: No evidence of flow-limiting obstruction. Osseous structures: Mild degenerative changes of the thoracic and lumbar spine. Internal fixation neumann rdware of the proximal right femur is again seen. Mild degenerative changes of the [place] left hip. Peripheral soft tissues: Large right-sided inguinal hernia containing a nonobstructed loop of small bowel is similar in appearance. IMPRESSION: Progression of previously seen calculi within the distal right ureter with a few small residual calc ren measuring less than 2 mm still present within the distal right ureter and ureterovesicular junct ion. Some of these appear to have passed into the urinary bladder and are seen layering dependently . Continued presence of right-sided nonobstructive renal calculi measuring up to 7 mm. 10 mm pulmonary nodule with irregular borders seen within the right lower lobe, outside of the field of view of the previous examination. PET scan is recommended for further evaluation to exclude mal ignancy. Cholelithiasis, unchanged. Large right inguinal hernia containing nonobstructed loop of small bowel is unchanged. RPTAT: AADD .Scout Lira MD, MD Date Time Electronically viewed and signed by .Scout Lira MD, on 10/24/2016 19:37 .B/
[2016-10-24] MEDS: ATORVASTATIN 80 MG TAB PO SCH (21:05)
[2016-10-24] MEDS: TAMSULOSIN (SR) 0.4 MG CAP PO SCH (21:05)
[2016-10-24] MEDS: LATANOPROST 0.005% 2.5 ML OPH BOTH EYES SCH (21:08)
[2016-10-25] VITALS (12 sets, daily range): BP systolic 138–170; BP diastolic 66–84; PULSE 68–140; RESP 16–20
[2016-10-25] MEDS: ACETAMINOPHEN 325 MG TAB PO PRN (01:27)
[2016-10-25] MEDS: PIPER-TAZO 3.375 GM IV (PMX) 100 ML IVPB SCH ×3 (05:27→21:25)
[2016-10-25 06:33] LABS: INR 2.08; PROTIME 23.6 Sec (12.2-14.2); PT RATIO 1.8
[2016-10-25] MEDS: PANTOPRAZOLE (EC) 40 MG TAB PO SCH (08:39)
[2016-10-25] MEDS: TOLTERODINE 2 MG TAB PO SCH (08:40)
[2016-10-25] MEDS: FOLIC ACID 1 MG TAB PO SCH (08:40)
[2016-10-25] MEDS: ASPIRIN (EC) 81 MG TAB PO SCH (08:40)
[2016-10-25] MEDS: METOPROLOL 50 MG TAB PO SCH ×2 (08:42→21:24)
[2016-10-25] MEDS: MULTIVITAMINS/MINERALS TAB PO SCH (08:42)
[2016-10-25] MEDS: MAGNESIUM OXIDE 400 MG TAB PO SCH ×3 (08:42→21:22)
[2016-10-25] MEDS: RANITIDINE 150 MG TAB PO SCH ×2 (08:43→21:23)
[2016-10-25] MEDS: PENTOXIFYLLINE (SR) 400 MG TAB PO SCH ×3 (08:43→21:22)
[2016-10-25] MEDS: traMADol 50 MG TAB PO SCH ×3 (08:43→21:25)
--- NOTE | 2016-10-25 12:42 | CONS ---
Date/Time of Note Date/Time of Note DATE: 10/25/16 TIME: 12:35 Assessment/Plan Assessment/Plan Chief Complaint/Hosp Course IMp: 1.Pre-op-for endoscopic/cystoscopy procedure 2.Cardiomyopathy-Low EF 25% by echo this admit-negative troponin x 3 3.MVR-mechanicalby echo read 4.renal calculi 5.Dyslipidemia 6. PAD s/p LE amputation 7.Coagulopathy-secondary to coumadin Recc: -Tele -continue asa/statin -Holding coumdin in anticipation of cystoscopy -Continue BB but change to BID dosing -start amio in attempt to maintain SR -Continue digoxin -Follow volume status closely Problems: Consultation Date/Type/Reason Admit Date/Time Oct 19, 2016 at 00:22 Initial Consult Date 10/24/2016 Type of Consultation: Cardiology Reason for Consultation cardiomyopathy/MVR/PAF Referring Provider: ALEKSEY GARCIA MD Exam/Review of Systems Vital Signs Vitals Vital Signs Date Time Temp Pulse Resp B/P Pulse Ox O2 Delivery O2 Flow Rate FiO2 10/25/16 11:40 97.4 68 18 138/66 98 Room Air Intake and Output 10/24/16 10/24/16 10/25/16 15:00 23:00 07:00 Intake Total 700 ml Output Total 1000 ml Balance -300 ml Exam Review of Systems: CONSTITUTIONAL: No fevers, chills. PULMONARY: No sob CARDIOVASCULAR: No chest pain/palpitations GASTROINTESTINAL: No nausea/vomiting. GENITOURINARY: No hematuria/dysuria. MUSCULOSKELETAL: No myagias/arthalgias. PSYCHIATRIC: The patient denies depression. NEUROLOGIC: generalized weakness Constitutional: alert, oriented Psych: no complaints Head: normocephalic ENMT: mucosa pink and moist Neck: jvd (9 cm water), supple Respiratory: diminished breath sounds (at bases/B) Cardiovascular: regular rate and rhythm Gastrointestinal: non-tender, soft Musculoskeletal: other (s/p LE amputation) Neurological: lethargic Results Result Diagram: 10/24/16 0619 10/24/16 0619 Results 24 hrs Laboratory Tests Test 10/24/16 12:45 10/25/16 05:33 Troponin I 0.036 Prothrombin Time 23.6 #H Prothrombin Time Ratio 1.8 INR International Normalized Ratio 2.08 Medications Medications Current Medications Ondansetron HCl (Zofran Inj) 4 mg Q6H PRN IV NAUSEA AND/OR VOMITING; Start at 05:00 Acetaminophen (Tylenol Tab) 650 mg Q6H PRN PO PAIN AND OR ELEVATED TEMP Last administered on 10/25/16 01:27; Admin Dose 650 MG; Start 10/19/16 at 05:00 Morphine Sulfate (morphine) 2 mg Q4H PRN IV PAIN Last administered on 22:52; Admin Dose 2 MG; Start 10/19/16 at 05:00 Aspirin (Halfprin) 81 mg DAILY PO Last administered on 10/25/16 08:40; Admin Dose 81 MG; Start 10/19/16 at 09:00 Atorvastatin Calcium (Lipitor) 80 mg HS PO Last administered on 10/24/16 21:05 ; Admin Dose 80 MG; Start 10/19/16 at 21:00 Digoxin (Digoxin) 0.125 mg DAILY@13 PO Last administered on 10/24/16 13:21; Admin Dose 0.125 MG; Start 10/19/16 at 13:00 Folic Acid (Folic Acid) 1 mg DAILY PO Last administered on 10/25/16 08:40; Admin Dose 1 MG; Start 10/19/16 at 09:00 Latanoprost (Xalatan) 1 drop QHS BOTH EYES Last administered on 10/24/16 21:08 ; Admin Dose 1 DROP; Start 10/19/16 at 21:00 Al Hydrox/Mg Hydrox/Simethicone (Mag-Al Plus) 30 ml Q6H PRN PO GASTROINTESTINAL UPSET; Start 10/19/16 at 05:00 Magnesium Oxide (Mag-Ox 400) 400 mg TID PO Last administered on 10/25/16 08:42 ; Admin Dose 400 MG; Start 10/19/16 at 09:00 Pentoxifylline (Trental) 400 mg TID PO Last administered on 10/25/16 08:43; Admin Dose 400 MG; Start 10/19/16 at 09:00 Ranitidine HCl (Zantac) 150 mg BID PO Last administered on 10/25/16 08:43; Admin Dose 150 MG; Start 10/19/16 at 09:00 Tolterodine Tartrate (Detrol) 4 mg DAILY PO Last administered on 10/25/16 08: 40; Admin Dose 4 MG; Start 10/19/16 at 09:00 Tramadol HCl (Ultram) 50 mg TID PO Last administered on 10/25/16 08:43; Admin Dose 50 MG; Start 10/19/16 at 09:00 Metoprolol Tartrate (Lopressor) 50 mg DAILY PO Last administered on 10/25/16 08:42; Admin Dose 50 MG; Start 10/19/16 at 09:00 Multivitamins/ Minerals 1 tab 1 tab DAILY PO Last administered on 10/25/16 08: 42; Admin Dose 1 TAB; Start 10/19/16 at 09:00 Piperacillin Sod/ Tazobactam Sod (Zosyn 3.375gm/ 100 ml (Pmx)) 100 ml @ 200 mls /hr Q8 IVPB Last administered on 10/25/16 05:27; Admin Dose 200 MLS/HR; Start 10/19/16 at 06:00 Tamsulosin HCl (Flomax) 0.4 mg HS PO Last administered on 10/24/16 21:05; Admin Dose 0.4 MG; Start 10/20/16 at 21:00 Warfarin Sodium 2 mg 2 mg DAILY@17 PO ; Start 10/22/16 at 17:00; Status Future Hold Dextrose (D5W) 1,000 ml @ 0 mls/hr [id number] IV Last administered on 10/24/16 05:15; Admin Dose 5 MLS/HR; Start 10/23/16 at 11:30 Loperamide HCl (Imodium Cap) 2 mg QID PRN PO DIARRHEA Last administered on 10/25 01:31; Admin Dose 2 MG; Start 10/24/16 at 15:00 LYNDSEY HAWTHORNE Oct 25, 2016 12:42
[2016-10-25] MEDS ORDERED: METOPROLOL 5 MG INJ IV PRN (13:00)
[2016-10-25] MEDS: DIGOXIN 0.125 MG TAB PO SCH (13:29)
--- NOTE | 2016-10-25 15:08 | PN ---
DATE: 10/25/2016 SUBJECTIVE: The patient has right renal and distal right ureteral stones; however, he denies having any pain, and he is comfortable. OBJECTIVE: VITAL SIGNS: His temperature is 97.4, blood pressure 138/66, pulse is 90, respiration 18. ABDOMEN: Soft, and there is no abdominal tenderness. LABORATORY DATA: CBC shows a white count of 5.4, hemoglobin 12.8, hematocrit 39.3. The BUN is 3, c reatinine 0.92, sodium 142, potassium 3.5, chloride 109, CO2 26. The PT is 23.6, INR 2.08. The pat ient underwent a CT scan of the abdomen and pelvis yesterday, and that did show that the previously seen stones in the distal right ureter have migrated into the bladder. He still has only about 2 mm stone in the distal right ureter, and that is too small and he should be able to pass it. The othe r stones are in the bladder and are layering dependently. The patient continued to have, however, r ight renal stone measuring up to 7 mm. There is a 10 mm pulmonary nodule with irregular borders óscar t was seen within the right lower lobe, and this is recommended to be examined by PET scan or a CT o f the chest. Also, the patient does have cholelithiasis and a large right inguinal hernia containin g nonobstructed loop of small bowel. IMPRESSION: The patient has right ureteral stones that he passed, most of them, and also right elda l stones. The plan is to observe him, and since he is passing the stones, there is no need for surg ical intervention. He does have a metallic mitral valve and has been on Coumadin, and if the plan i s to restart his Coumadin, it is okay with me. As far as the chest is concerned, he seems to have h ad a CT of the abdomen twice but nothing of the chest. I would recommend to order a CT of the chest to check on that pulmonary nodule. Dictated By: GAETANO ROMAN/ROMEL Conf#: [id number] DID#: [id number]
[2016-10-25] MEDS: LATANOPROST 0.005% 2.5 ML OPH BOTH EYES SCH (21:22)
[2016-10-25] MEDS: ATORVASTATIN 80 MG TAB PO SCH (21:23)
[2016-10-25] MEDS: AMIODARONE 200 MG TAB PO SCH (21:23)
[2016-10-25] MEDS: TAMSULOSIN (SR) 0.4 MG CAP PO SCH (21:24)
--- NOTE | 2016-10-25 21:58 | PN ---
Date/Time of Note Date/Time of Note DATE: 10/25/16 TIME: 21:57 Assessment/Plan VTE Prophylaxis VTE Prophylaxis Intervention: other Lines/Catheters IV Catheter Type (from Nrs): Mid Line Urinary Cath still in place: No Assessment/Plan Chief Complaint/Hosp Course IMPRESSION: 1. The patient has acute renal colic, ureteral stone, kidney stone and bladder stone. 2. The patient has systemic inflammatory response syndrome. 3. Dehydration. 4. Hypernatremia. 5. History of chronic atrial fibrillation. 6. History of rheumatic heart disease. 7. History of mitral valve replacement, mechanical, per patient. 8. History of dyslipidemia. 9. History of hypertension. 10. History of peripheral vascular disease. 11. History of prostate cancer being monitored by Dr. Martins. [address] chest snf soon Problems: Subjective 24 Hr Interval Summary Cardiovascular: no complaints Gastrointestinal: no complaints Genitourinary: no complaints Exam/Review of Systems Vital Signs Vitals Vital Signs Date Time Temp Pulse Resp B/P Pulse Ox O2 Delivery O2 Flow Rate FiO2 10/25/16 19:56 97.2 71 16 165/73 95 10/25/16 11:40 Room Air Intake and Output 10/24/16 10/24/16 10/25/16 14:59 22:59 06:59 Intake Total 700 ml Output Total 1000 ml Balance -300 ml Exam Neck: supple Respiratory: clear to auscultation Cardiovascular: irregular rhythm Gastrointestinal: soft Musculoskeletal: nl extremities to inspection Results Result Diagram: 10/24/1661810/24/16 0619 Results 24 hrs Laboratory Tests Test 10/25/16 05:33 Prothrombin Time 23.6 #H Prothrombin Time Ratio 1.8 INR International Normalized Ratio 2.08 Medications Medications Current Medications Ondansetron HCl (Zofran Inj) 4 mg Q6H PRN IV NAUSEA AND/OR VOMITING; Start at 05:00 Acetaminophen (Tylenol Tab) 650 mg Q6H PRN PO PAIN AND OR ELEVATED TEMP Last administered on 10/25/16 01:27; Admin Dose 650 MG; Start 10/19/16 at 05:00 Morphine Sulfate (morphine) 2 mg Q4H PRN IV PAIN Last administered on 22:52; Admin Dose 2 MG; Start 10/19/16 at 05:00 Aspirin (Halfprin) 81 mg DAILY PO Last administered on 10/25/16 08:40; Admin Dose 81 MG; Start 10/19/16 at 09:00 Atorvastatin Calcium (Lipitor) 80 mg HS PO Last administered on 10/25/16 21:23 ; Admin Dose 80 MG; Start 10/19/16 at 21:00 Digoxin (Digoxin) 0.125 mg DAILY@13 PO Last administered on 10/25/16 13:29; Admin Dose 0.125 MG; Start 10/19/16 at 13:00 Folic Acid (Folic Acid) 1 mg DAILY PO Last administered on 10/25/16 08:40; Admin Dose 1 MG; Start 10/19/16 at 09:00 Latanoprost (Xalatan) 1 drop QHS BOTH EYES Last administered on 10/25/16 21:22 ; Admin Dose 1 DROP; Start 10/19/16 at 21:00 Al Hydrox/Mg Hydrox/Simethicone (Mag-Al Plus) 30 ml Q6H PRN PO GASTROINTESTINAL UPSET; Start 10/19/16 at 05:00 Magnesium Oxide (Mag-Ox 400) 400 mg TID PO Last administered on 10/25/16 21:22 ; Admin Dose 400 MG; Start 10/19/16 at 09:00 Pentoxifylline (Trental) 400 mg TID PO Last administered on 10/25/16 21:22; Admin Dose 400 MG; Start 10/19/16 at 09:00 Ranitidine HCl (Zantac) 150 mg BID PO Last administered on 10/25/16 21:23; Admin Dose 150 MG; Start 10/19/16 at 09:00 Tolterodine Tartrate (Detrol) 4 mg DAILY PO Last administered on 10/25/16 08: 40; Admin Dose 4 MG; Start 10/19/16 at 09:00 Tramadol HCl (Ultram) 50 mg TID PO Last administered on 10/25/16 21:25; Admin Dose 50 MG; Start 10/19/16 at 09:00 Multivitamins/ Minerals 1 tab 1 tab DAILY PO Last administered on 10/25/16 08: 42; Admin Dose 1 TAB; Start 10/19/16 at 09:00 Piperacillin Sod/ Tazobactam Sod (Zosyn 3.375gm/ 100 ml (Pmx)) 100 ml @ 200 mls /hr Q8 IVPB Last administered on 10/25/16 21:25; Admin Dose 200 MLS/HR; Start 10/19/16 at 06:00 Tamsulosin HCl 0.4 mg 0.4 mg HS PO Last administered on 10/25/16 21:24; Admin Dose 0.4 MG; Start 10/20/16 at 21:00 Dextrose (D5W) 1,000 ml @ 0 mls/hr [id number] IV Last administered on 10/24/16 05:15; Admin Dose 5 MLS/HR; Start 10/23/16 at 11:30 Loperamide HCl (Imodium Cap) 2 mg QID PRN PO DIARRHEA Last administered on 10/25 01:31; Admin Dose 2 MG; Start 10/24/16 at 15:00 Metoprolol Tartrate (Lopressor) 50 mg BID PO Last administered on 10/25/16 21: 24; Admin Dose 50 MG; Start 10/25/16 at 21:00 Amiodarone HCl (Cordarone) 200 mg BID PO Last administered on 10/25/16 21:23; Admin Dose 200 MG; Start 10/25/16 at 21:00 Metoprolol Tartrate (Lopressor) 5 mg Q4H PRN IV HR>110 Hold SBP<100; Start at 13:00 Warfarin Sodium (Coumadin) 3 mg DAILY@17 PO ; Start 10/26/16 at 17:00 ALEKSEY GRACIA MD Oct 25, 2016 21:58
--- NOTE | 2016-10-25 23:54 | RADRPT ---
PROCEDURE: CT Chest. CLINICAL INDICATION: Follow-up right lower lobe 10 mm pulmonary nodule TECHNIQUE: CT scan of the chest without contrast was performed on the RESPACEpeed CT scanner at [facility]. Sagittal and coronal reformatted images were obtained from the axial s ource images. The CTDIvol is 12.6 mGy and the DLP is 473.23 mGycm. One of the following 3 dose reduction techniques were used: Automated exposure control; adjustment of the mA and/or kV according to patient size; or use of iterative reconstruction technique. COMPARISON: CT abdomen pelvis 10/24/2016 FINDINGS: The visualized base of the neck and bilateral thyroid lobes are normal. The patient is status post median sternotomy and mitral valve replacement. Vascular calcifications are present of the aorta an d the coronary arteries. The heart size is normal. No pericardial effusion is present. Left pleur al thickening or small effusion is present. The lungs are remarkable for bilateral emphysematous disease. A large left peripheral upper lobe bl eb is present which measures 3.7 cm. Again noted is a spiculated nodule in the right anterior lower lobe which on current study measures 10 mm AP by 12 mm in transverse dimensions. Associated pleura l parenchymal changes are noted with right middle lobe interstitial fibrosis. In addition a small 1 mm calcified nodule is present in the right posterior lower lobe. This compatible with prior expos ure to granulomatous disease. The visualized liver demonstrates a calcified granuloma. The visualized spleen also has multiple ca lcified granulomas. The pancreas, and bilateral adrenal glands are normal. Cholelithiasis is prese nt in a decompressed gallbladder. No evidence for pericholecystic fluid or gallbladder wall thicken ing is noted. The bilateral kidneys demonstrate multiple nonobstructive renal calculi measuring 6 m m in maximum transverse dimensions in the right mid pole of the kidney. Mild vascular calcification s are present of the aorta with a left renal artery vascular stent. A small hiatal hernia is presen t. The axillary regions, subpectoral regions, and supraclavicular regions are all unremarkable. The surrounding osseous structures are remarkable for mild degenerative spondylosis of the spine. IMPRESSION: 1. Spiculated anterior right lower lobe 10 mm AP by 12 mm in transverse nodule. Recommend PET-CT i s previously suggested to evaluate for malignancy 2. Status post median sternotomy, mitral valvular replacement and atherosclerotic vascular disease 3. Bilateral emphysematous changes in the lungs with a calcified right lower lobe granuloma. 4. Cholelithiasis without evidence for acute cholecystitis. 5. Nonobstructive right nephrolithiasis RPTAT: HDC .Indira Estrella MD, MD Date Time Electronically viewed and signed by .Indira Estrella MD, on 10/25/2016 23:54 .C/
[2016-10-26] VITALS (9 sets, daily range): BP systolic 124–178; BP diastolic 67–82; PULSE 69–87; RESP 16–20
[2016-10-26] MEDS: PIPER-TAZO 3.375 GM IV (PMX) 100 ML IVPB SCH (06:23)
[2016-10-26] MEDS: PANTOPRAZOLE (EC) 40 MG TAB PO SCH (08:42)
[2016-10-26] MEDS: ASPIRIN (EC) 81 MG TAB PO SCH (08:43)
[2016-10-26] MEDS: TOLTERODINE 2 MG TAB PO SCH (08:43)
[2016-10-26] MEDS: AMIODARONE 200 MG TAB PO SCH (08:43)
[2016-10-26] MEDS: FOLIC ACID 1 MG TAB PO SCH (08:43)
[2016-10-26] MEDS: METOPROLOL 50 MG TAB PO SCH (08:44)
[2016-10-26] MEDS: MAGNESIUM OXIDE 400 MG TAB PO SCH ×2 (08:44→13:00)
[2016-10-26] MEDS: PENTOXIFYLLINE (SR) 400 MG TAB PO SCH ×2 (08:45→13:00)
[2016-10-26] MEDS: RANITIDINE 150 MG TAB PO SCH (08:45)
[2016-10-26] MEDS: MULTIVITAMINS/MINERALS TAB PO SCH (08:45)
[2016-10-26 08:47] LABS: INR 1.41; PROTIME 17.3 Sec (12.2-14.2); PT RATIO 1.4
[2016-10-26] MEDS: traMADol 50 MG TAB PO SCH ×2 (08:47→13:00)
--- NOTE | 2016-10-26 09:24 | CONS ---
Date/Time of Note Date/Time of Note DATE: 10/26/16 TIME: 09:21 Assessment/Plan Assessment/Plan Additional Assessment/Plan 1.Pre-op-for endoscopic/cystoscopy procedure - OK to proceed 2.Cardiomyopathy-Low EF 25% by echo this admit-negative troponin x 3 - no CP now , reasonable fluid status 3.MVR-mechanicalby echo read - stable by exam 4.renal calculi 5.Dyslipidemia 6. PAD s/p LE amputation - vascular folows 7.Coagulopathy-secondary to coumadin - MVR Consultation Date/Type/Reason Admit Date/Time Oct 19, 2016 at 00:22 Initial Consult Date Type of Consultation: Cardiology Referring Provider: ALEKSEY GARCIA MD 24 HR Interval Summary Free Text/Dictation NO acute events - BP stable - euvolemic now ROS: No fever, no chills, no nausea, no vomiting, no diarrhea/constipation No recent weight changes No chest pain, no PND, no orthopnea No dizziness, blurred vision No thirst, no heat or cold intolerance Exam/Review of Systems Vital Signs Vitals Vital Signs Date Time Temp Pulse Resp B/P Pulse Ox O2 Delivery O2 Flow Rate FiO2 10/26/16 08:51 86 10/26/16 06:54 97.6 17 178/81 95 10/25/16 11:40 Room Air Intake and Output 10/25/16 10/25/16 10/26/16 15:00 23:00 07:00 Intake Total 500 ml 800 ml Output Total 550 ml 720 ml Balance -50 ml 80 ml Exam General: WN/WD/NAD, AOx 3 HEENT: Unicetric/atraumatic/EOMI (follow commands) NECK: JVD elevated, no thyromegaly Lymph: no lymphadenopathy HEART: regular with no S3, II/ systolic murmur at apex LUNGS: Coarse sounds ABD: soft, NT, ND, +BS : Intact Neuro: non focal SKIN: chronic changes EXT: amput Results Result Diagram: 10/24/1661810/24/16618 Results 24 hrs Laboratory Tests Test 10/26/16 06:05 Prothrombin Time 17.3 #H Prothrombin Time Ratio 1.4 INR International Normalized Ratio 1.41 Medications Medications Current Medications Ondansetron HCl (Zofran Inj) 4 mg Q6H PRN IV NAUSEA AND/OR VOMITING; Start at 05:00 Acetaminophen (Tylenol Tab) 650 mg Q6H PRN PO PAIN AND OR ELEVATED TEMP Last administered on 10/25/16 01:27; Admin Dose 650 MG; Start 10/19/16 at 05:00 Morphine Sulfate (morphine) 2 mg Q4H PRN IV PAIN Last administered on 22:52; Admin Dose 2 MG; Start 10/19/16 at 05:00 Aspirin (Halfprin) 81 mg DAILY PO Last administered on 10/26/16 08:43; Admin Dose 81 MG; Start 10/19/16 at 09:00 Atorvastatin Calcium (Lipitor) 80 mg HS PO Last administered on 10/25/16 21:23 ; Admin Dose 80 MG; Start 10/19/16 at 21:00 Digoxin (Digoxin) 0.125 mg DAILY@13 PO Last administered on 10/25/16 13:29; Admin Dose 0.125 MG; Start 10/19/16 at 13:00 Folic Acid (Folic Acid) 1 mg DAILY PO Last administered on 10/26/16 08:43; Admin Dose 1 MG; Start 10/19/16 at 09:00 Latanoprost (Xalatan) 1 drop QHS BOTH EYES Last administered on 10/25/16 21:22 ; Admin Dose 1 DROP; Start 10/19/16 at 21:00 Al Hydrox/Mg Hydrox/Simethicone (Mag-Al Plus) 30 ml Q6H PRN PO GASTROINTESTINAL UPSET; Start 10/19/16 at 05:00 Magnesium Oxide (Mag-Ox 400) 400 mg TID PO Last administered on 10/26/16 08:44 ; Admin Dose 400 MG; Start 10/19/16 at 09:00 Pentoxifylline (Trental) 400 mg TID PO Last administered on 10/26/16 08:45; Admin Dose 400 MG; Start 10/19/16 at 09:00 Ranitidine HCl (Zantac) 150 mg BID PO Last administered on 10/26/16 08:45; Admin Dose 150 MG; Start 10/19/16 at 09:00 Tolterodine Tartrate (Detrol) 4 mg DAILY PO Last administered on 10/26/16 08: 43; Admin Dose 4 MG; Start 10/19/16 at 09:00 Tramadol HCl (Ultram) 50 mg TID PO Last administered on 10/26/16 08:47; Admin Dose 50 MG; Start 10/19/16 at 09:00 Multivitamins/ Minerals 1 tab 1 tab DAILY PO Last administered on 10/26/16 08: 45; Admin Dose 1 TAB; Start 10/19/16 at 09:00 Piperacillin Sod/ Tazobactam Sod (Zosyn 3.375gm/ 100 ml (Pmx)) 100 ml @ 200 mls /hr Q8 IVPB Last administered on 10/26/16 06:23; Admin Dose 200 MLS/HR; Start 10/19/16 at 06:00 Tamsulosin HCl 0.4 mg 0.4 mg HS PO Last administered on 10/25/16 21:24; Admin Dose 0.4 MG; Start 10/20/16 at 21:00 Dextrose (D5W) 1,000 ml @ 0 mls/hr [id number] IV Last administered on 10/24/16 05:15; Admin Dose 5 MLS/HR; Start 10/23/16 at 11:30 Loperamide HCl (Imodium Cap) 2 mg QID PRN PO DIARRHEA Last administered on 10/25 01:31; Admin Dose 2 MG; Start 10/24/16 at 15:00 Metoprolol Tartrate (Lopressor) 50 mg BID PO Last administered on 10/26/16 08: 44; Admin Dose 50 MG; Start 10/25/16 at 21:00 Amiodarone HCl (Cordarone) 200 mg BID PO Last administered on 10/26/16 08:43; Admin Dose 200 MG; Start 10/25/16 at 21:00 Metoprolol Tartrate (Lopressor) 5 mg Q4H PRN IV HR>110 Hold SBP<100; Start at 13:00 Warfarin Sodium (Coumadin) 3 mg DAILY@17 PO ; Start 10/26/16 at 17:00 ESTELITA KEVIN MD Oct 26, 2016 09:24
--- NOTE | 2016-10-26 10:59 | PN ---
DATE: 10/26/2016 SUBJECTIVE: Abdominal pain which has subsided. The patient does have a distal right ureteral stone which he passed into the bladder. He may still have one 2 mm stone, which he will be able to pass on his own. PAST SURGICAL HISTORY: The patient denies having any pain today and he is voiding well. OBJECTIVE: VITAL SIGNS: His temperature is 98.9, blood pressure 178/81, pulse right now is 82, respirations 17 . ABDOMEN: Soft. There is no abdominal tenderness. LABORATORY DATA: His last CBC shows a white count of 5.4, hemoglobin 12.8. The BUN is , creat inine 0.91. IMPRESSION: Distal right ureteral stones which he passed into his bladder. However, he did not pas s them out through the bladder, he may even have to passed them without noticing it, but since the u rine has been strained, if he did they should have been recovered, but he will pass them, they are n ot big and therefore, he should be able to urinate them without any problem. RECOMMENDATION: As far as urology concerned, he should be able to go to the half-way and I will see him back in about a month. I am not going to see him in about a week because there is nothing to do for him in about a week anyhow. Dictated By: GAETANO ROMAN/ROMEL Conf#: [id number] DID#: [id number]
[2016-10-26] MEDS: DIGOXIN 0.125 MG TAB PO SCH (13:00)
[2016-10-26] MEDS ORDERED: WARFARIN 3 MG TAB PO SCH (17:00)
--- NOTE | 2016-10-29 17:27 | QN ---
Documentation Comment [id number] ALEKSEY GARCIA MD Oct 29, 2016 17:27
--- NOTE | 2016-10-30 06:50 | DS ---
DATE OF ADMISSION: 10/19/2016 DATE OF DISCHARGE: 10/26/2016 HOSPITAL COURSE: Edmundo Liriano was admitted with diagnosis of acute renal colic , noted to have ureteral stone, kidney stone, or bladder stone. The patient also has hypernatremia and dehydration, chronic atrial fibrillation, rheumatic heart disease, history of mitral valve replacement. Also the patient has a history of PVD, prostate cancer. The patient was seen by Dr. Martins in consultation. His recommendations were followed. The patient to go home on antibiotic. The patient was also seen by Dr. Charles Sparks and also Dr. Cline and Dr. Bacon in consultation. The patient's 2-D echo was done. The patient's ejection fraction is visually estimated at 25%, abnormal diastolic function. Impression: The patient has normal left ventricular cavity size, mild concentric left ventricular hypertrophy, normal right ventricular size. The cultures have Aerococcus urinae. The patient also has atrial fibrillation which medications were adjusted. The patient had chest x-ray done shows the patient has no acute cardiopulmonary process, but the patient had abdominal CT and pelvic CT scan done, shows the patient has progression of calculi within the distal right ureter with a few small right ureteral calculus measuring less than 2 mm still present. Continue clearance of right-sided nonobstructive renal calculi. A 10 mm pulmonary nodule with a lateral border seen within the right lower lobe examination with PET scan is recommended, cholelithiasis, large right inguinal hernia containing nonobstructive loop of the small bowel. The patient had abdominal x-ray done. Shows the right renal calculi and distal right ureter _ visualized and gallstone, atherosclerosis, left renal artery stent. The patient also had abdominal x-ray done, shows multiple calcifications overlying the right kidney. The patient had abdominal CT and pelvis done prior to that, shows mild to moderate right hydronephrosis, nonobstructing calculi in the right kidney, and the largest 7 mm. The patient had a CT chest done, shows the patient has spiculated anterior right lower lobe 10 mm AP x 12 mm in transverse nodule scan, status post median sternotomy, mitral valve replacement and atherosclerotic vascular disease, bilateral emphysematous changes, cholelithiasis, nonobstructive right nephrolithiasis. The patient was cleared by the executive talent acquisition consultant to be discharged home. The patient will have further workup as an outpatient. DISCHARGE DIAGNOSES: Include: 1. The patient has distal right ureteral stone which he passed into the bladder. 2. The patient also has a clinical urinary tract infection. 3. Dehydration. 4. Hyponatremia. 5. Atrial fibrillation. 6. Lung nodule. 7. History of cardiomyopathy. 8. Ejection fraction 25%. 9. Mitral valve replacement. 10. Dyslipidemia. 11. Peripheral arterial disease. 12. Peripheral vascular disease. 13. Renal artery stent. 14. The patient has history of prostate carcinoma, being followed by Dr. Martins. 15. Anemia. 16. Status post dehydration. 17. The patient also has a history of rheumatic heart disease. OTHER DIAGNOSES: Include as mentioned in the history and physical, history of mitral valve replacement, dyslipidemia, hypertension, peripheral vascular disease. DISCHARGE MEDICATIONS: To continue: 1. Zofran. 2. Tylenol. 3. Morphine. 4. Aspirin. 5. Lipitor. 6. Digoxin. 7. Folic acid. 8. ____. 9. Magnesium. 10. Trental. 11. ____. 12. Detrol. 13. Tramadol. 14. Multiple vitamin. 15. Zosyn. 16. Flomax. 17. Loperamide. 18. Metoprolol. 19. Amiodarone. 20. Coumadin. FOLLOWUP: The patient to follow up with Dr. Martins, cardiology, and Dr. 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 The patient to follow with Dr. Locke, and the patient to follow with endless track vehicle supervisor as an outpatient. DISPOSITION: The patient is stable at the time of discharge. Dictated By: ALEKSEY WILSON/ROMEL Conf#: [id number] DID#: [id number] ENRRIQUE
== END 2016-10-26 14:04 | DRG 694 ==
LOC: E/R 21:41 → MS2 10-19 00:22 → TEL 10-23 13:35
PROVIDERS: ADMIT Internal Medicine Nephrology; ATTEND Internal Medicine Nephrology
DX: N20.2 Calculus of kidney with calculus of ureter (principal); E87.0 Hyperosmolality and hypernatremia; N39.0 Urinary tract infection, site not specified; I48.2 Chronic atrial fibrillation; R65.10 Systemic inflammatory response syndrome (SIRS) of non-infectious origin without acute organ dysfunction; I42.9 Cardiomyopathy, unspecified; N21.0 Calculus in bladder; J44.9 Chronic obstructive pulmonary disease, unspecified; E78.5 Hyperlipidemia, unspecified; I25.10 Atherosclerotic heart disease of native coronary artery without angina pectoris; Z66 Do not resuscitate; I73.9 Peripheral vascular disease, unspecified; I10 Essential (primary) hypertension; E86.0 Dehydration; I09.9 Rheumatic heart disease, unspecified; D64.9 Anemia, unspecified; K29.70 Gastritis, unspecified, without bleeding; C61 Malignant neoplasm of prostate; R79.1 Abnormal coagulation profile; R91.1 Solitary pulmonary nodule; Z95.2 Presence of prosthetic heart valve; Z89.511 Acquired absence of right leg below knee; Z79.82 Long term (current) use of aspirin; Z79.01 Long term (current) use of anticoagulants; Z87.11 Personal history of peptic ulcer disease; T45.515A Adverse effect of anticoagulants, initial encounter
CPT/HCPCS: 36415; 71010; 71250; 74000; 74176; 80048; 80053; 81001; 83690; 83880; 84443; 84484; 85025; 85610; 85730; 87075; 87081; 87086; 93306; 96374; J0696; J2270; J2543; J7042; J7070

== ENCOUNTER → 2017-01-12 | Outpatient (CLI) | payer MEDICARE, OTHER ==
[~2017-01-12] MED LIST changes: -ACET-2158 GTB; +ASPI-664 PO; -BIMA2.5D RIGHT EYE; -BRIM10DR2 OP; +CILO50TA PO; -ENOX30DI10 SQ; -FLOMAX; +LATA2.5D9 BOTH EYES; +MAGN400T27 PO; -METOPROLOL ER; +MULT-876 PO; +RANI150T9 PO; +TRAM50TA2 PO; +UDMYL PO
--- NOTE | 2017-01-12 21:53 | RADRPT ---
PROCEDURE: CT CHEST WITHOUT CONTRAST CLINICAL INDICATION: Right lower lobe lung nodule TECHNIQUE: Volumetrically acquired images of the thorax obtained without intravenous contrast were reformatted in the axial, coronal, and sagittal planes. CTDI = 9.7 mGy; DLP = 379 mGy-cm. One or m ore of the following dose reduction techniques were used: Automated exposure control. Adjustment of the mA and/or kV according to patient size. Use of iterative reconstruction technique . COMPARISON: CT scan from 10/25/2016. FINDINGS: LOWER NECK AND CHEST WALL: Normal. AIRWAYS: The trachea and large airways are normal. Mild bronchial wall thickening is seen. LUNGS: There is a background of severe centrilobular emphysema. There is a nonspecific 4 mm nodule s een in the right upper lobe (series 4 image 43). Previously demonstrated spiculated nodule seen in t he right lower lobe has increased in size measuring 15 mm (series 3 image 80). Whether a No suspicious nodules, masses, or consolidation. PLEURA: Unremarkable. No pleural thickening or effusions. MEDIASTINUM: No mediastinal mass. LYMPH NODES: No significant axillary, hilar, or mediastinal lymphadenopathy by CT size criteria. CARDIAC: Mild cardiomegaly. Status post sternotomy with aortic and mitral valve replacements. Of a N o pericardial effusion or thickening. VASCULAR: The aorta and main pulmonary artery are normal in caliber. Aortic and coronary atheroscl erotic calcifications are present. OSSEOUS: No suspicious osseous lesions. Scattered degenerative changes of the thoracic spine is vis ualized. Limited evaluation of the upper abdomen demonstrates cholelithiasis. Punctate granulomas seen in the right lobe the periods scattered granulomas are also seen in the spleen. A benign appearing right r enal cyst is demonstrated. There is a [id number]-[id number] hiatal hernia.. IMPRESSION: 1. Interval increase in size of right lower lobe spiculated nodule currently measuring 15 mm is susp icious for lung cancer. Consider PET scan or lung biopsy to further evaluate. 2. Stable background of severe centrilobular emphysema and smoking related airways disease/chronic b ronchitis. Interval development of 4 mm micronodule in the right upper lobe appears post inflammator y nature. Recommend follow-up in 6 months. 3. Stable cardiomegaly status post sternotomy with aortic and mitral valve replacements. 4. Atherosclerosis. 5. Abiblrvd-su-oxcil hiatal hernia. 6. Cholelithiasis. RPTAT:PP .Ramón Prado MD, MD Date Time Electronically viewed and signed by .Ramón Prado MD, on 01/12/2017 21:52 .V/
== END | disposition home or self-care (01) ==
LOC: C/S 08:57
PROVIDERS: ATTEND Internal Medicine Nephrology
DX: R91.1 Solitary pulmonary nodule (principal)
CPT/HCPCS: 71250

== ENCOUNTER 2017-05-23 08:32 | Inpatient (IN) | END 2017-06-11 19:00 | DRG 239 ==